=== PATIENT | male | born 1990 | race Hispanic/Latino ===

== ENCOUNTER 2024-07-26 19:22 | Emergency (ER) | payer SELFPAY ==
[2024-07-26 19:57] LABS: Absolute Lymphocytes (CBC) 0.9 K/uL (0.7-4.9); Absolute Monocytes 0.6 K/uL (0.1-1.3); Absolute Neutrophil 6.5 K/uL (1.8-8.0); Basophils % 0.5 % (0-1.3); Eosinophils % 0.5 % (0-4.4); Hematocrit 44.7 % (39.6-49.0); Hemoglobin 15.1 g/dL (13.6-17.9); Lymphocytes % 11.6 % (15.3-44.8); MCHC 33.9 g/dL (32.0-36.0); MCV 94.4 fL (80-100); MPV 7.6 fL (7.6-11.3); Monocytes % 7.5 % (3.3-12.3); Neutrophils % 79.9 % (41.7-73.7); Nucleated Red Blood Cells % 0.1 % (0-0); Platelets 280 thou/uL (152-406); RBC Red Blood Cell Count 4.74 M/uL (4.33-5.43); Red Cell Distribution Width 13.8 % (12.1-15.2)
[2024-07-26 20:02] LABS: PT Prothrombin Time 11.1 SECONDS (9.4-12.5); PTT, Activated Partial Thromb 34.5 SECONDS (24.3-36.9); Protime INR 0.99
[2024-07-26 20:52] LABS: ALT/SGPT 27 U/L (16-61); AST/SGOT 15 U/L (15-37); Albumin 3.4 g/dL (3.4-5.0); Alkaline Phosphatase 88 U/L (45-117); Anion Gap 4.5 mEq/L (5.0-15.0); BUN Blood Urea Nitrogen 5 mg/dL (7-18); Bicarbonate 32 mEq/L (21-32); Bilirubin Total 0.3 mg/dL (0.2-1.0); Globulin 3.3 g/dL (2.3-3.5); Glomerular Filtration Rate 116 ml/min (=/>90); Glucose Level 104 mg/dL (74-106); Potassium 3.5 mEq/L (3.5-5.1); Protein, Total 6.7 g/dL (6.4-8.2); Sodium Level 141 mEq/L (136-145)
[2024-07-26 20:55] LABS: Bilirubin Direct < 0.2 mg/dL (0-0.2); Bilirubin Indirect, Calculated 0.1 mg/dL (0.2-0.8)
[2024-07-26 21:28] LABS: Barbiturates NEGATIVE (NEGATIVE); Benzodiazepines NEGATIVE (NEGATIVE); Cocaine NEGATIVE (NEGATIVE); METHAMPHETAM POSITIVE (NEGATIVE); Methadone NEGATIVE (NEGATIVE); Opiates NEGATIVE (NEGATIVE); Phencyclidine NEGATIVE (NEGATIVE); THC Cannibis NEGATIVE (NEGATIVE)
[2024-07-26 21:30] LABS: Sqamous Epithelial None Seen /HPF (None Seen); Urine Bacteria None Seen /HPF (<20); Urine Bilirubin NEGATIVE (Negative); Urine Blood Negative (Negative); Urine Clarity Turbid (Clear); Urine Color Colorless (Yellow); Urine Crystals Unidentified Few /HPF (None Seen); Urine Culture Reflex Order NOT NEEDED; Urine Glucose NEGATIVE (Negative); Urine Ketones NEGATIVE (Negative); Urine Microscopic Reflex YN ORDER UMIC; Urine Mucus Slight /HPF (None Seen); Urine Nitrite NEGATIVE (Negative); Urine Protein NEGATIVE (Negative); Urine RBC <5 /HPF (None Seen); Urine Urobilinogen Normal (Normal); Urine WBC <5 /HPF (<5)
[2024-07-26] MEDS ORDERED: NA CHLORIDE 0.9% 1,000 ML ONE (21:53)
--- NOTE | 2024-07-27 01:07 | ER ---
Nurse's Notes [facility] Name: Russell Johansen Age: 33 yrs Sex: Male : 1990 Arrival Date: 07/26/2024 Time: 19:22 Bed 16 Private MD: Diagnosis: Suicide attempt Presentation: 07/26 19:22 Chief complaint: EMS states: Pt called girlfriend saying he took a hole bottle of vc1 pills. When we arrived he stated he took 15 Aleve pm. 19:22 Coronavirus screen: Client denies travel out of the [place] in the last 14 days. At this vc1 time, the client does not indicate any symptoms associated with coronavirus-19. Ebola Screen: Patient negative for fever greater than or equal to 101.5 degrees Fahrenheit, and additional compatible Ebola Virus Disease symptoms Patient denies exposure to infectious person. Patient denies travel to an Ebola-affected area in the 21 days before illness onset. No symptoms or risks identified at this time. Initial Sepsis Screen: Does the patient meet any 2 criteria? No. Patient's initial sepsis screen is negative. Does the patient have a suspected source of infection? No. Patient's initial sepsis screen is negative. Risk Assessment: Do you want to hurt yourself or someone else? Patient reports no desire to harm self or others. Onset of symptoms was July 26, 2024 at 18:00. Care prior to arrival: Medication(s) given: zofran 4 mg, IV initiated. 18 GA, in the right antecubital area, 300cc NS. Activity prior to arrival: None. Mechanism of Injury: No Mechanism of Injury. Transition of care: patient was not received from another setting of care. 19:22 Method Of Arrival: EMS: [facility] vc1 19:22 Acuity: [place] 2 vc1 Triage Assessment: 19:22 General: Appears in no apparent distress. comfortable, slender, Behavior is calm, vc1 cooperative, appropriate for age. Pain: Denies pain. EENT: No deficits noted. No signs and/or symptoms were reported regarding the EENT system. Neuro: Level of Consciousness is awake, alert, obeys commands, Oriented to person, place, time, situation, Appropriate for age. Cardiovascular: Capillary refill < 3 seconds Patient's skin is warm and dry. Respiratory: Airway is patent Respiratory effort is even, unlabored, Respiratory pattern is regular, symmetrical. GI: Abdomen is flat, non-distended. : No deficits noted. No signs and/or symptoms were reported regarding the genitourinary system. Derm: Skin is intact, is healthy with good turgor, Skin is dry, Skin is normal, Skin temperature is warm. Musculoskeletal: Circulation, motion, and sensation intact. Range of motion: intact in all extremities. Historical: - Allergies: 19:22 No Known Allergies; vc1 - Home Meds: 19:22 None [Active]; vc1 - PMHx: 19:22 None; vc1 - PSHx: 19:22 None; vc1 - Immunization history:: Client reports receiving the 2nd dose of the Covid vaccine. - Infectious Disease History:: Denies. - Social history:: Smoking status: Patient reports the use of cigarette tobacco products, smokes one-half pack cigarettes per day. Screenin:22 Abuse screen: Denies threats or abuse. Nutritional screening: No deficits noted. vc1 Tuberculosis screening: No symptoms or risk factors identified. 19:37 [facility] ED Fall Risk Assessment (Adult) History of falling in the last 3 months, rg5 including since admission No falls in past 3 months (0 pts) Confusion or Disorientation No (0 pts) Intoxicated or Sedated No (0 pts) Impaired Gait No (0 pts) Mobility Assist Device Used No (0 pt) Altered Elimination No (0 pt) Score/Fall Risk Level 0 - 2 = Low Risk Oriented to surroundings, Maintained a safe environment, Hourly rounding (assess needs \\T\\ fall precautionary measures) done. Assessment: 19:37 General: Appears in no apparent distress. Behavior is calm, cooperative, appropriate rg5 for age. 19:37 Pain: Denies pain. Neuro: Level of Consciousness is awake, alert, obeys commands, rg5 Oriented to person, place, time, Reports suicidal ideation. Cardiovascular: Denies chest pain, Capillary refill < 3 seconds Patient's skin is warm and dry. Respiratory: Airway is patent Trachea midline Respiratory effort is even, unlabored, Respiratory pattern is regular, symmetrical. GI: Abdomen is flat, non-distended. : No signs and/or symptoms were reported regarding the genitourinary system. EENT: No deficits noted. Derm: Skin is intact, Skin is dry, Skin is normal. Musculoskeletal: Circulation, motion, and sensation intact. Range of motion: intact in all extremities. 20:15 Reassessment: Patient and/or family updated on plan of care and expected duration. Pain rg5 level reassessed. Patient is alert, oriented x 3, equal unlabored respirations, skin warm/dry/pink. 20:57 General: Spoke to [employer] control, case # [id number] Pt may experience GI symptoms, N/V/D vc1 and abdominal pain, may also experience anticholinergic effects. Watch for ORS widening, and drowsiness. 6 hour observation from time of ingestion. 21:00 Reassessment: Patient and/or family updated on plan of care and expected duration. Pain rg5 level reassessed. Patient is alert, oriented x 3, equal unlabored respirations, skin warm/dry/pink. 22:00 Reassessment: Patient and/or family updated on plan of care and expected duration. Pain rg5 level reassessed. Patient is alert, oriented x 3, equal unlabored respirations, skin warm/dry/pink. 23:00 Reassessment: Patient and/or family updated on plan of care and expected duration. Pain rg5 level reassessed. Patient is alert, oriented x 3, equal unlabored respirations, skin warm/dry/pink. 07/27 00:00 Reassessment: Patient and/or family updated on plan of care and expected duration. Pain rg5 level reassessed. Patient is alert, oriented x 3, equal unlabored respirations, skin warm/dry/pink. 01:00 Reassessment: Patient and/or family updated on plan of care and expected duration. Pain rg5 level reassessed. Patient is alert, oriented x 3, equal unlabored respirations, skin warm/dry/pink. 02:00 Reassessment: Patient and/or family updated on plan of care and expected duration. Pain rg5 level reassessed. Patient is alert, oriented x 3, equal unlabored respirations, skin warm/dry/pink. 03:00 Reassessment: Patient and/or family updated on plan of care and expected duration. Pain rg5 level reassessed. Patient is alert, oriented x 3, equal unlabored respirations, skin warm/dry/pink. 04:00 Reassessment: Patient and/or family updated on plan of care and expected duration. Pain rg5 level reassessed. Patient is alert, oriented x 3, equal unlabored respirations, skin warm/dry/pink. 05:00 Reassessment: Patient and/or family updated on plan of care and expected duration. Pain rg5 level reassessed. Patient is alert, oriented x 3, equal unlabored respirations, skin warm/dry/pink. 06:01 Reassessment: No changes from previously documented assessment. Patient and/or family rg5 updated on plan of care and expected duration. Pain level reassessed. Overdose: 07/26 19:22 [place] Suicide Severity Screening: "In the past month, have you wished you were vc1 or wished you could go to sleep and not wake up?" Patient responds "yes." Based off client's responses, additional C-SSRS screening questions required. "In the past month, have you actually had any thoughts of killing yourself?" Patient responds "yes." Based off client's responses, additional C-SSRS screening questions required. "In your lifetime, have you ever done anything, started to do anything, or prepared to do anything to end your life?" Patient responds "yes." Pt states he took pills tonight to "go to sleep and not wake up". 19:22 Patient took 15 Aleve PM. Overdose occurred 30 minutes to 1 hour ago. vc1 Vital Signs: 19:22 BP 126 / 81; Pulse 78; Resp 15; Temp 98; Pulse Ox 100% ; Weight 74.84 kg; Height 5 ft. vc1 6 in. ; Pain 0/10; 19:37 BP 126 / 81; Pulse 78; Resp 16; Temp 98(O); Pulse Ox 100% on R/A; Pain 0/10; rg5 19:22 Body Mass Index 26.63 (74.84 kg, 167.64 cm) vc1 19:22 Pain Scale: Adult vc1 19:37 Pain Scale: Adult rg5 [place] Coma Score: 19:37 Eye Response: spontaneous(4). Motor Response: obeys commands(6). Verbal Response: rg5 oriented(5). Total: 15. ED Course: 19:22 Arm band placed on right wrist. vc1 19:22 Patient has correct armband on for positive identification. Bed in low position. Pulse vc1 ox on. NIBP on. Sitter at bedside. Patient is placed in psych hold. 19:37 Patient arrived in ED. vc1 19:37 Gavino Agudelo, RN is Primary Nurse. rg5 19:37 Safety Checks: Personal items have been removed. The door is open or patient has been rg5 placed in a hallway bed/chair. Sitter present at this time. 19:37 No provider procedures requiring assistance completed. Maintain EMS IV. Dressing rg5 intact. Good blood return noted. Site clean \\T\\ dry. Gauge \\T\\ site: 18 right AC. Flushed with 10 mL NS IV is intact. Patient maintains SpO2 saturation greater than 95% on room air. 19:41 Moe Hicks PA is PHCP. cp 19:41 Moe Betancourt MD is Attending Physician. cp 19:48 Triage completed. vc1 20:00 Warm blanket given. oe 20:04 EKG done, by ED staff, reviewed by Moe JENKINS. oe 20:07 Robin Cruz MD is Attending Physician. cp 20:12 Salicylate Sent. oe 20:12 Hepatic Function Sent. oe 20:12 ETOH Level Sent. oe 20:12 Basic Metabolic Panel Sent. oe 20:12 Acetaminophen Sent. oe 23:32 Door closed. Noise minimized. Lights dimmed. oe 23:34 Diet: Patient given snack. Patient given juice. Patient given water. oe 07/27 04:20 Resting quietly. Appears to be sleeping. transfer approval from receiving facility. rg5 05:55 IV discontinued. rg5 06:00 Provided Education on: post er care. rg5 Administered Medications: 07/26 22:01 Drug: NS 0.9% IV 1000 ml IV at 1000 ml once; to be given as a bolus over 60 minutes rg5 Route: IV; Rate: 1000 ml; Site: right antecubital; 23:15 Follow up: IV Status: Completed infusion; IV Intake: 1000ml rg5 07/27 01:42 Drug: Ativan IVP 1 mg IVP once Route: IVP; Site: right antecubital; rg5 02:00 Follow up: Response: No adverse reaction rg5 Medication: 07/26 19:37 VIS not applicable for this client. rg5 Intake: 23:15 IV: 1000ml; Total: 1000ml. rg5 Outcome: 07/27 01:07 ER care complete, transfer ordered by MD. cp 06:09 Patient left the ED. rg5 06:10 Transferred by ground EMS rg5 06:10 Condition: stable 06:10 Instructed on the need for transfer, Signatures: Moe Hicks PA PA cp Espinosa, [place] oe Calcote, Vanessa, RN RN vc1 Gavino Agudelo RN RN rg5 Corrections: (The following items were deleted from the chart) 07/26 20:59 19:22 Chief complaint: EMS states: Pt called girlfriend saying he took a hole bottle of vc1 pills. When we arrived he stated he took 15 Aleve prn. vc1
--- NOTE | 2024-07-27 01:08 | EDPHYS ---
Physician Documentation [facility] Name: Russell Johansen Age: 33 yrs Sex: Male : 1990 Arrival Date: 07/26/2024 Time: 19:22 Bed 16 Private MD: ED Physician Robin Cruz HPI: 07/26 19:45 This 33 yrs old Male presents to ER via EMS with complaints of Overdose, cp Suicidal Ideation. 19:45 The patient presents to the emergency department after a known overdose, that was cp intentional. Context: Method: the patient has a confirmed or suspected ingestion, Aleve, Extent: about 15 tablets of Aleve PM. 19:45 Associated signs and symptoms: Pertinent negatives: auditory hallucinations, decreased cp level of consciousness, diarrhea, palpitations, shortness of breath, visual hallucinations, vomiting. Historical: - Allergies: 19:22 No Known Allergies; vc1 - Home Meds: 19:22 None [Active]; vc1 - PMHx: 19:22 None; vc1 - PSHx: 19:22 None; vc1 - Immunization history:: Client reports receiving the 2nd dose of the Covid vaccine. - Infectious Disease History:: Denies. - Social history:: Smoking status: Patient reports the use of cigarette tobacco products, smokes one-half pack cigarettes per day. ROS: 19:50 Constitutional: Negative for body aches, chills, fever, poor PO intake, cp 19:50 Cardiovascular: Negative for chest pain, edema, palpitations, cp 19:50 Abdomen/GI: Negative for abdominal pain, vomiting, diarrhea, constipation, 19:50 Eyes: Negative for injury, pain, redness, and discharge, cp 19:50 ENT: Negative for drainage from ear(s), ear pain, sore throat, difficulty swallowing, cp difficulty handling secretions, 19:50 Respiratory: Negative for cough, shortness of breath, wheezing, 19:50 Neuro: Negative for altered mental status, 19:50 All other systems are negative, Exam: 19:55 Constitutional: The patient appears in no acute distress, alert, awake, cp non-diaphoretic, non-toxic, well developed, well nourished, 19:55 Head/Face: Normocephalic, atraumatic. cp 19:55 Eyes: Periorbital structures: appear normal, Conjunctiva: normal, no exudate, no injection, Sclera: no appreciated abnormality, Lids and lashes: appear normal, bilaterally, 19:55 ENT: External ear(s): are unremarkable, Nose: is normal, Mouth: Lips: moist, Oral mucosa: pink and intact, moist, Posterior pharynx: Airway: no evidence of obstruction, patent, 19:55 Chest/axilla: Inspection: normal, 19:55 Cardiovascular: Rate: normal, Rhythm: regular, 19:55 Respiratory: the patient does not display signs of respiratory distress, Respirations: normal, no use of accessory muscles, no retractions, labored breathing, is not present, Breath sounds: are clear throughout, no decreased breath sounds, no stridor, no wheezing, 19:55 Abdomen/GI: Exam negative for discomfort, distension, guarding, Inspection: abdomen appears normal, 19:55 Neuro: Orientation: to person, place \T\ time. Mentation: is normal, 19:55 Psych: Behavior/mood is uncooperative, Affect is calm, Judgement / Insight is normal. Delusions/hallucinations are not present. 20:10 ECG was reviewed by the Attending Physician. cp Vital Signs: 19:22 BP 126 / 81; Pulse 78; Resp 15; Temp 98; Pulse Ox 100% ; Weight 74.84 kg; Height 5 ft. vc1 6 in. ; Pain 0/10; 19:37 BP 126 / 81; Pulse 78; Resp 16; Temp 98(O); Pulse Ox 100% on R/A; Pain 0/10; rg5 19:22 Body Mass Index 26.63 (74.84 kg, 167.64 cm) vc1 19:22 Pain Scale: Adult vc1 19:37 Pain Scale: Adult rg5 [place] Coma Score: 19:37 Eye Response: spontaneous(4). Motor Response: obeys commands(6). Verbal Response: rg5 oriented(5). Total: 15. MDM: 19:41 Medical Screening Exam initiated cp 20:00 Differential diagnosis: Ingestion/exposure to toxic ingestion, suicide attempt, cp depression, electrolyte abnormality. 07/27 01:10 Data reviewed: vital signs, nurses notes, lab test result(s), EKG, and as a result, I cp will transfer patient for psych treatment. 17:33 Counseling: I had a detailed discussion with the patient and/or guardian regarding the cp historical points, exam findings, and any diagnostic results supporting the discharge/admit diagnosis. Response to treatment: the patient's symptoms have markedly improved after treatment, and as a result, I will discharge patient. 07/26 19:38 Order name: Acetaminophen; Complete Time: 21:46 sb4 07/26 19:38 Order name: Basic Metabolic Panel; Complete Time: 21:46 sb4 07/27 01:03 Interpretation: Normal except: CL 108; ANION GAP 4.5; BUN 5. cp 07/26 19:38 Order name: CBC with Diff; Complete Time: 21:46 sb4 07/26 21:47 Interpretation: Normal except: TERRIE% 79.9; LYM% 11.6. cp 07/26 19:38 Order name: ETOH Level; Complete Time: 21:46 sb4 07/26 19:38 Order name: Hepatic Function; Complete Time: 21:46 sb4 07/27 01:04 Interpretation: Normal except: IBILI, CALC 0.1; A/G 1.0. 07/26 19:38 Order name: PT-INR; Complete Time: 21:46 sb4 07/26 19:38 Order name: Ptt, Activated; Complete Time: 21:46 sb4 07/26 19:38 Order name: Salicylate; Complete Time: 21:46 sb4 07/26 19:38 Order name: Urinalysis w/ reflexes; Complete Time: 21:46 sb4 07/27 01:05 Interpretation: Reviewed. 07/26 19:38 Order name: Urine Drug Screen; Complete Time: 21:46 sb4 07/27 01:04 Interpretation: Normal except: METHAMPHETAMINE POSITIVE. 07/26 19:38 Order name: EKG; Complete Time: 19:38 sb4 07/26 19:38 Order name: EKG - Nurse/Tech; Complete Time: 20:12 sb4 07/26 19:38 Order name: IV Saline Lock; Complete Time: 20:41 sb4 07/26 19:38 Order name: Labs collected and sent; Complete Time: 20:12 sb4 07/26 19:38 Order name: Suicide Precautions; Complete Time: 20:43 sb4 07/26 19:38 Order name: Suicide Screening ([place]); Complete Time: 20:43 sb4 07/26 21:06 Order name: Seizure Precautions; Complete Time: 21:37 vc1 EC/04 20:10 Rate is 66 beats/min. Rhythm is regular. SC interval is normal. QRS interval is normal. cp QT interval is normal. T waves are Inverted in lead aVR. Interpreted by me. Reviewed by me. Administered Medications: 22:01 Drug: NS 0.9% IV 1000 ml IV at 1000 ml once; to be given as a bolus over 60 minutes rg5 Route: IV; Rate: 1000 ml; Site: right antecubital; 23:15 Follow up: IV Status: Completed infusion; IV Intake: 1000ml rg5 07/27 01:42 Drug: Ativan IVP 1 mg IVP once Route: IVP; Site: right antecubital; rg5 02:00 Follow up: Response: No adverse reaction rg5 Disposition: 20:30 Co-signature as Attending Physician, Robin Cruz MD I agree with the assessment sp4 and plan of care. I reviewed the patient's care provided by Advanced Practice Provider \T\ agree w/ the diagnosis \T\ care plan. I personally saw the pt \T\ performed a substantive portion of the visit, incldng all aspects of the (History/Exam/Medical Decision Making). Disposition Summary: 07/27/24 01:07 Transfer Ordered Notes: Transfer Location: Psych Facility cp Reason: Higher level of care cp Condition: Stable cp Problem: new cp Symptoms: have improved cp Accepting Physician: Doctor(07/27/24 06:09) rg5 Diagnosis - Suicide attempt cp Discharge Instructions: - Discharge Summary Sheet rg5 Forms: - Medication Reconciliation Form cp - SBAR form cp - School release form rg5 - Work release form rg5 Signatures: Dispatcher [employer] EDMS Moe Hicks PA PA cp Calcote, Vanessa RN RN vc1 Yisel Gonsalves PA-C PARobin Barrios MD MD sp4 Gavino Agudelo RN RN rg5 Corrections: (The following items were deleted from the chart) 07/26 19:38 19:38 ACETAMINOPHEN+C.LAB.BRZ ordered. EDMS EDMS 19:38 19:38 BASIC METABOLIC PANEL+C.LAB.BRZ ordered. EDMS EDMS 19:38 19:38 CBC+H.LAB.BRZ ordered. EDMS EDMS 19:38 19:38 ETHANOL+C.LAB.BRZ ordered. EDMS EDMS :38 19:38 HEPATIC FUNCTION+C.LAB.BRZ ordered. EDMS EDMS 38 19:38 PROTIME (+INR)+COAG.LAB.BRZ ordered. EDMS EDMS :38 19:38 PTT, ACTIVATED+COAG.LAB.BRZ ordered. EDMS EDMS 19:38 SALICYLATE+C.LAB.BRZ ordered. EDMS EDMS : 19:38 Urinalysis+U.LAB.BRZ ordered. EDMS EDMS : 19:38 URINE DRUG SCREEN+UC.LAB.BRZ ordered. EDMS EDMS 07/27 06:09 01:07 Doctor ekta rg5
[2024-07-27] MEDS ORDERED: LORazepam 2 MG/ML VIAL ONE (01:39)
[2024-07-27 06:15] VITALS: BP 126/81; TEMP 98; O2SAT 100
--- NOTE | 2024-07-27 12:17 | EKG ---
Test Date: 2024-07-26 Test Time: 20:02:04 Process Architect: RE MEASUREMENT RESULTS: Intervals: Rate: 66 MA: 132 QRSD: 98 QT: 404 QTc: 423 [place]: P: 36 MA: 132 QRS: 56 T: 57 INTERPRETIVE STATEMENTS: Normal sinus rhythm Normal ECG Compared to ECG 12/15/2001 08:55:00 No significant changes Electronically Signed On 07-27-24 12:16:02 [employer] by Stephen Monte
== END 2024-07-27 06:09 ==
LOC: ER 19:22
DX: T39.312A Poisoning by propionic acid derivatives, intentional self-harm, initial encounter (principal); Z72.0 Tobacco use
CPT/HCPCS: 36415; 80048; 80076; 80143; 80179; 80307; 81001; 82077; 85025; 85610; 85730; 93005; J7030

== ENCOUNTER 2024-08-24 14:46 | Emergency (ER) | payer OTHER ==
[2024-08-24] MEDS ORDERED: DIPHENHYDRAMINE 50 MG/ML VIAL ONE (15:27)
[2024-08-24] MEDS ORDERED: HALOPERIDOL LACT 5 MG/ML INJ ONE (15:27)
[2024-08-24 15:28] LABS: Absolute Eosinophils 0.1 K/uL (0-0.5); Absolute Lymphocytes (CBC) 1.1 K/uL (0.7-4.9); Absolute Monocytes 0.7 K/uL (0.1-1.3); Absolute Neutrophil 6.5 K/uL (1.8-8.0); Basophils % 0.4 % (0-1.3); Eosinophils % 0.7 % (0-4.4); Hematocrit 45.5 % (39.6-49.0); Hemoglobin 15.4 g/dL (13.6-17.9); Lymphocytes % 13.3 % (15.3-44.8); MCV 94.2 fL (80-100); MPV 7.4 fL (7.6-11.3); Monocytes % 8.6 % (3.3-12.3); Nucleated Red Blood Cells % 0.1 % (0-0); Platelets 285 thou/uL (152-406); RBC Red Blood Cell Count 4.83 M/uL (4.33-5.43); Red Cell Distribution Width 13.9 % (12.1-15.2)
[2024-08-24 15:35] LABS: PT Prothrombin Time 11.1 SECONDS (9.4-12.5); PTT, Activated Partial Thromb 34.7 SECONDS (24.3-36.9); Protime INR 0.99
[2024-08-24 15:48] LABS: ALT/SGPT 27 U/L (16-61); AST/SGOT 14 U/L (15-37); Albumin 3.8 g/dL (3.4-5.0); Albumin/Globulin Ratio 1.1 (1.1-1.8); Alkaline Phosphatase 75 U/L (45-117); Anion Gap 7.7 mEq/L (5.0-15.0); BUN Blood Urea Nitrogen 7 mg/dL (7-18); Bicarbonate 28 mEq/L (21-32); Bilirubin Total 0.4 mg/dL (0.2-1.0); Globulin 3.6 g/dL (2.3-3.5); Glomerular Filtration Rate 112 ml/min (=/>90); Glucose Level 128 mg/dL (74-106); Potassium 3.7 mEq/L (3.5-5.1); Protein, Total 7.4 g/dL (6.4-8.2); Sodium Level 137 mEq/L (136-145)
[2024-08-24 15:49] LABS: Bilirubin Direct < 0.2 mg/dL (0-0.2); Bilirubin Indirect, Calculated 0.2 mg/dL (0.2-0.8)
[2024-08-24 17:45] LABS: Barbiturates NEGATIVE (NEGATIVE); Benzodiazepines POSITIVE (NEGATIVE); Cocaine NEGATIVE (NEGATIVE); METHAMPHETAM POSITIVE (NEGATIVE); Methadone NEGATIVE (NEGATIVE); Opiates NEGATIVE (NEGATIVE); Phencyclidine NEGATIVE (NEGATIVE); THC Cannibis NEGATIVE (NEGATIVE)
--- NOTE | 2024-08-24 18:50 | EDPHYS ---
Physician Documentation [facility] Name: Russell Johansen Age: 34 yrs Sex: Male : 1990 Arrival Date: 08/24/2024 Time: 14:46 Bed 18 Private MD: ED Physician Blayne Soto HPI: 08/24 17:07 This 34 yrs old Male presents to ER via EMS with complaints of Doesn't Feel ec2 Right. 17:07 Patient arrives today for evaluation of "not feeling well ". Reports that he is hearing ec2 things however would not elaborate. Patient reports some anxiety, endorses methamphetamine use. Patient denies any suicidality to me however reportedly told this to nursing.. Historical: - Allergies: 15:16 No Known Allergies; aa5 - PMHx: 15:16 Anxiety; aa5 - Immunization history:: Adult Immunizations unknown. - Infectious Disease History:: Denies. - Social history:: Smoking status: Patient reports the use of cigarette tobacco products, Patient uses street drugs, Methamphetamine (Meth) Xanax. ROS: 17:07 Constitutional: as per hpi ec2 Exam: 17:07 Constitutional: GEN: NAD Head: atraumatic Eyes: EOMI Ears: External ears are ec2 normal. CV: Tachycardia LUNGS: no respiratory distress ABD: non-distended SKIN: no evidence of rashes MSK: no evidence of trauma. Psych: Cooperative individual who is not responding to external stimuli who otherwise denies suicidality to me Vital Signs: 14:46 BP 139 / 91; Pulse 103; Resp 16 S; Temp 97.8(TE); Pulse Ox 98% on R/A; Weight 72.57 kg aa5 (R); Height 5 ft. 6 in. (R); 18:47 BP 133 / 88; Pulse 77; Resp 17; Pulse Ox 98% on R/A; rs5 19:26 BP 106 / 54; Pulse 77; Resp 15; Pulse Ox 98% on R/A; Pain 0/10; ty 22:21 BP 130 / 79; Pulse 80; Resp 17; Temp 97.5; Pulse Ox 100% ; Pain 0/10; bm8 14:46 Body Mass Index 25.82 (72.57 kg, 167.64 cm) aa5 19:26 Pain Scale: Adult ty 22:21 Pain Scale: Adult bm8 [place] Coma Score: 19:26 Eye Response: spontaneous(4). Motor Response: obeys commands(6). Verbal Response: bm8 oriented(5). Total: 15. 22:21 Eye Response: spontaneous(4). Motor Response: obeys commands(6). Verbal Response: bm8 oriented(5). Total: 15. MDM: 15:05 Medical Screening Exam initiated ec2 17:07 Data reviewed: vital signs, nurses notes. ec2 17:08 ED course: Patient arrives today for feeling unwell. Examination is unrevealing. Will ec2 obtain a toxic workup.. 17:20 ED course: EKG independently reviewed and interpreted by me, shows normal sinus rhythm, ec2 rate of 89, no acute ST segment elevations, intervals are nonactionable.. 18:49 ED course: Patient medically clear, endorses suicidality and homicidality states that ec2 he wants to go hang himself. Will have [facility] evaluate him.. 12/03 15:05 Order name: Acetaminophen; Complete Time: 17:07 ec2 08/24 15:05 Order name: Basic Metabolic Panel; Complete Time: 17:07 ec2 08/24 15:05 Order name: CBC with Diff; Complete Time: 17:07 ec2 08/24 15:05 Order name: ETOH Level; Complete Time: 17:07 ec2 08/24 15:05 Order name: Hepatic Function; Complete Time: 17:07 ec2 08/24 15:05 Order name: PT-INR; Complete Time: 17:07 ec2 08/24 15:05 Order name: Ptt, Activated; Complete Time: 17:07 ec2 08/24 15:05 Order name: Salicylate; Complete Time: 17:07 ec2 08/24 15:05 Order name: Urine Drug Screen; Complete Time: 17:53 ec2 08/24 15:05 Order name: EKG; Complete Time: 15:06 ec2 08/24 15:05 Order name: EKG - Nurse/Tech; Complete Time: 18:07 ec2 08/24 15:05 Order name: IV Saline Lock; Complete Time: 15:22 ec2 08/24 15:05 Order name: Labs collected and sent; Complete Time: 15:22 ec2 08/24 15:05 Order name: Suicide Screening ([place]); Complete Time: 15:22 ec2 Administered Medications: 16:14 Drug: Haloperidol IVP 5 mg IVP once Route: IVP; Site: right antecubital; jb4 16:33 Follow up: Response: No adverse reaction; Anxiety decreased rs5 16:14 Drug: diphenhydrAMINE IVP 25 mg IVP once Route: IVP; Site: right antecubital; jb4 16:33 Follow up: Response: No adverse reaction rs5 Disposition Summary: 08/24/24 18:50 Transfer Ordered Notes: Transfer Location: Psych Facility ec2 Reason: Higher level of care ec2 Condition: Stable ec2 Problem: new ec2 Symptoms: have improved ec2 Accepting Physician: transferring doc(08/24/24 22:25) bm8 Diagnosis - Suicidal ideations ec2 Forms: - Medication Reconciliation Form ec2 - SBAR form ec2 Signatures: Dispatcher [employer] Shaneka Kay RN RN aa5 Zhen Mckeon RN RN jb4 Blayne Soto MD MD ec2 Ramo Cummings RN RN bm8 Scott Hogan RN rs5 Corrections: (The following items were deleted from the chart) 17:09 17:07 Constitutional: GEN: NAD Head: atraumatic Eyes: EOMI Ears: External ears are ec2 normal. CV: Tachycardia LUNGS: no respiratory distress ABD: non-distended SKIN: no evidence of rashes MSK: no evidence of trauma ec2 22:25 18:50 transferring doc ec2 bm8
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
[2024-08-25 05:07] VITALS: BP 130/79; TEMP 97.5; O2SAT 100
== END 2024-08-24 22:25 ==
LOC: ER 14:46
DX: R45.851 Suicidal ideations (principal); F41.9 Anxiety disorder, unspecified; Z72.0 Tobacco use
CPT/HCPCS: 85025; 80048; 36415; 85610; 80076; 85730; 80307; 96375; 96374; 99285; 80143; 80179; 82077; J1630; J1200

== ENCOUNTER 2024-09-16 10:37 | Emergency (ER) | payer OTHER ==
[2024-09-16 11:37] LABS: Absolute Monocytes 0.5 K/uL (0.1-1.3); Basophils % 0.4 % (0-1.3); Eosinophils % 0.5 % (0-4.4); Hematocrit 46.8 % (39.6-49.0); Hemoglobin 15.8 g/dL (13.6-17.9); Lymphocytes % 14.9 % (15.3-44.8); MCH 32.1 pg (27.0-35.0); MCHC 33.8 g/dL (32.0-36.0); MCV 94.9 fL (80-100); MPV 7.4 fL (7.6-11.3); Monocytes % 7.8 % (3.3-12.3); Neutrophils % 76.4 % (41.7-73.7); Platelets 291 thou/uL (152-406); RBC Red Blood Cell Count 4.93 M/uL (4.33-5.43); Red Cell Distribution Width 13.6 % (12.1-15.2)
[2024-09-16 11:59] LABS: ALT/SGPT 24 U/L (16-61); AST/SGOT 13 U/L (15-37); Albumin 3.9 g/dL (3.4-5.0); Albumin/Globulin Ratio 1.1 (1.1-1.8); Alkaline Phosphatase 71 U/L (45-117); BUN Blood Urea Nitrogen 10 mg/dL (7-18); Bicarbonate 31 mEq/L (21-32); Bilirubin Total 0.4 mg/dL (0.2-1.0); Globulin 3.6 g/dL (2.3-3.5); Glomerular Filtration Rate 95 ml/min (=/>90); Glucose Level 100 mg/dL (74-106); Protein, Total 7.5 g/dL (6.4-8.2); Sodium Level 138 mEq/L (136-145)
[2024-09-16] MEDS ORDERED: RISPERIDONE 1 MG TABLET PO ONE (12:00)
[2024-09-16] MEDS ORDERED: TRAZODONE 50 MG TABLET PO ONE (12:00)
[2024-09-16] MEDS ORDERED: BUSPIRONE HCL 5 MG TABLET PO ONE (12:00)
[2024-09-16] MEDS ORDERED: LORAZEPAM 1 MG TABLET ONE ×2 (12:36→20:01)
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
--- NOTE | 2024-09-16 17:19 | EDPHYS ---
Physician Documentation [facility] Name: Russell Johansen Age: 34 yrs Sex: Male : 1990 Arrival Date: 09/16/2024 Time: 10:37 Bed 16 Private MD: ED Physician Ernestine Lea HPI: 09/16 11:08 This 34 yrs old Male presents to ER via Ambulatory with complaints of Suicidal sd2 Ideation, ETOH Abuse. 11:08 34 yo M presents with CC of SI and ETOH and meth abuse. Reports drinking bottle of sd2 [place] and using meth yesterday. Reports SI prior to that and continuously with associated hallucinations. Has been off his medications for a few days as well which he reports were previously helping him. Reports a plan to harm himself but refuses to elaborate. Denies HI.. Historical: - Allergies: 10:46 No Known Allergies; iw - Home Meds: 12:32 Risperdal 4 mg Oral tablet every day at bedtime [Active]; buspirone 10 mg Oral tablet 1 ph tab daily [Active]; trazodone 50 mg Oral tablet 1 tab every day at bedtime [Active]; - PMHx: 10:46 Anxiety; iw - PSHx: 10:46 None; iw - Immunization history:: Adult Immunizations not up to date. - Infectious Disease History:: Denies. - Social history:: Smoking status: Patient reports the use of cigarette tobacco products, smokes one pack cigarettes per day. Patient uses street drugs, Methamphetamine (Meth). ROS: 11:08 Constitutional: Negative for fever, chills, and weight loss, Eyes: Negative for injury, sd2 pain, redness, and discharge, Cardiovascular: Negative for chest pain, palpitations, and edema, Respiratory: Negative for shortness of breath, cough, wheezing. Abdomen/GI: Negative for abdominal pain, nausea, vomiting, diarrhea. MS/Extremity: Negative for injury and deformity, Skin: Negative for injury, rash, and discoloration, Neuro: Negative for headache, numbness and tingling. Psych: Positive for depression, anxiety, suicide ideation, and hallucinations, Negative for HI Exam: 11:08 Constitutional: This is a well developed, well nourished patient who is awake, alert, sd2 and in no acute distress. Head/Face: Normocephalic, atraumatic. Eyes: EOMI, normal conjunctiva bilaterally Chest/axilla: Normal chest wall appearance and motion. Nontender with no deformity. Cardiovascular: Regular rate and rhythm with a normal S1 and S2. No gallops, murmurs, or rubs. 2+ distal pulses. Respiratory: Lungs have equal breath sounds bilaterally, clear to auscultation and percussion. No rales, rhonchi or wheezes noted. No increased work of breathing, no retractions or nasal flaring. Abdomen/GI: Soft, non-tender, with normal bowel sounds. No guarding or rebound. No evidence of tenderness throughout. Skin: Warm, dry with normal turgor. Normal color with no rashes, no lesions, and no evidence of cellulitis. MS/ Extremity: Pulses equal, no cyanosis. Neurovascular intact. Full, normal range of motion. Psych: Awake, alert, with orientation to person, place and time. Behavior, mood, and affect are within normal limits. 15:01 ECG was reviewed by the Attending Physician. NSR, rate 87, no STEMI criteria sd2 Vital Signs: 10:44 BP 143 / 101; Pulse 102; Resp 18; Temp 97.2; Pulse Ox 99% on R/A; Weight 76.2 kg; iw Height 5 ft. 6 in. ; 14:41 BP 132 / 89; Pulse 94; Resp 18; Temp 97.4; Pulse Ox 98% on R/A; ph 19:00 BP 119 / 71 LA (auto/reg); Pulse 86; Resp 17; Temp 98.2; Pulse Ox 100% on R/A; vk 09/17 05:58 BP 123 / 73; Pulse 91; Resp 18; Temp 98; Pulse Ox 99% on R/A; kj2 09/16 10:44 Body Mass Index 27.12 (76.20 kg, 167.64 cm) iw MDM: 09/16 10:49 Medical Screening Exam initiated sd2 11:08 Differential diagnosis: depression, SI, HI, psychosis, drug abuse among others. Data sd2 reviewed: vital signs, nurses notes, lab test result(s). I considered the following discharge prescriptions or medication management in the emergency department Medications were administered in the Emergency Department. See MAR. Care significantly affected by the following chronic conditions: Anxiety and depression. 17:17 Counseling: I had a detailed discussion with the patient and/or guardian regarding the sd2 historical points, exam findings, and any diagnostic results supporting the discharge/admit diagnosis, lab results, the need to transfer to another facility, mental health evaluation. ED course: Pt medically cleared and pending evaluation by MAT team.. Now reports that he is no longer suicidal and just felt anxious after taking the drugs. Reports he has a follow up with [facility] tomorrow. . 09/16 11:00 Order name: CBC with Diff; Complete Time: 05:31 sd2 09/16 11:00 Order name: CMP; Complete Time: 05:31 sd2 09/16 11:00 Order name: Ethanol; Complete Time: 05:31 sd2 09/16 11:00 Order name: Salicylate; Complete Time: 05:31 sd2 09/16 11:00 Order name: Acetaminophen; Complete Time: 05:31 sd2 09/16 11:00 Order name: UDS; Complete Time: 05:31 sd2 09/16 11:00 Order name: EKG - Nurse/Tech; Complete Time: 14:57 sd2 Administered Medications: 11:52 Drug: busPIRone 10 mg PO once Route: PO; ph 14:57 Follow up: Response: No adverse reaction ph 11:52 Drug: RisperDAL PO 4 mg PO once Route: PO; ph 14:57 Follow up: Response: No adverse reaction ph 12:56 Drug: LORazepam PO 2 mg PO once Route: PO; ph 14:57 Follow up: Response: No adverse reaction; Anxiety decreased ph 20:04 Drug: LORazepam PO 2 mg PO once Route: PO; kj2 21:09 Follow up: Response: No adverse reaction kj2 20:05 Drug: traZODONE PO 50 mg PO once Route: PO; kj2 21:09 Follow up: Response: No adverse reaction kj2 09/17 05:40 Drug: LORazepam PO 2 mg PO once Route: PO; kj2 05:57 Follow up: Response: Medication administered at discharge. kj2 05:57 Follow up: Response: No adverse reaction; Anxiety decreased kj2 05:57 Drug: RisperDAL PO 4 mg PO once Route: PO; kj2 05:57 Follow up: Response: Medication administered at discharge. kj2 Disposition Summary: 09/16/24 17:18 Transfer Ordered Notes: Transfer Location: Psych Facility sd2 Reason: Higher level of care sd2 Condition: Stable sd2 Problem: new sd2 Symptoms: are unchanged sd2 Accepting Physician: MERY(09/17/24 06:00) kj2 Diagnosis - Suicidal ideations sd2 - Adverse effect of amphetamines, initial encounter sd2 Discharge Instructions: - Discharge Summary Sheet ty Forms: - Medication Reconciliation Form sd2 - SBAR form ty Signatures: Dispatcher [employer] EDRafaela Bailon, RN RN Lianet Lyons ph D, RN RNunlop, Stephanie, MD MD sd2 Robin Cruz MD MD sp4 Tanya Caldwell RN RN kj2 Corrections: (The following items were deleted from the chart) 09/16 11:00 11:00 CBC+H.LAB.BRZ ordered. EDMS EDMS 11:00 11:00 COMPREHENSIVE METABOLIC PANEL+C.LAB.BRZ ordered. EDMS EDMS 11:00 11:00 ETHANOL+C.LAB.BRZ ordered. EDMS EDMS 11:00 11:00 SALICYLATE+C.LAB.BRZ ordered. EDMS EDMS 11:00 11:00 ACETAMINOPHEN+C.LAB.BRZ ordered. EDMS EDMS 11:00 11:00 URINE DRUG SCREEN+UC.LAB.BRZ ordered. EDMS EDMS 09/17 06:00 09/16 17:18 TBD sd2 kj2
[2024-09-16 20:41] LABS: Barbiturates NEGATIVE (NEGATIVE); Benzodiazepines NEGATIVE (NEGATIVE); Cocaine NEGATIVE (NEGATIVE); METHAMPHETAM POSITIVE (NEGATIVE); Methadone NEGATIVE (NEGATIVE); Opiates NEGATIVE (NEGATIVE); Phencyclidine NEGATIVE (NEGATIVE); THC Cannibis NEGATIVE (NEGATIVE)
[2024-09-17] MEDS ORDERED: LORAZEPAM 1 MG TABLET ONE (05:35)
[2024-09-17] MEDS ORDERED: RISPERIDONE 1 MG TABLET ONE (05:39)
[2024-09-17 06:11] VITALS: BP 123/73; TEMP 98; O2SAT 99
--- NOTE | 2024-09-20 11:21 | EKG ---
Test Date: 2024-09-16 Test Time: 14:36:34 Cleaner And Dyer: ENOCH MEASUREMENT RESULTS: Intervals: Rate: 87 AZ: 130 QRSD: 92 QT: 350 QTc: 421 [place]: P: 40 AZ: 130 QRS: 66 T: 23 INTERPRETIVE STATEMENTS: Normal sinus rhythm Normal ECG Compared to ECG 08/24/2024 17:16:38 No significant changes Electronically Signed On 09-20-24 11:14:56 DRAFTING ENGINEER by Stephen Monte
== END 2024-09-17 06:00 ==
LOC: ER 10:37
DX: R45.851 Suicidal ideations (principal); T43.625A Adverse effect of amphetamines, initial encounter; F41.9 Anxiety disorder, unspecified; F17.210 Nicotine dependence, cigarettes, uncomplicated
CPT/HCPCS: 36415; 80053; 80143; 80179; 80307; 82077; 85025; 93005; 99285

== ENCOUNTER 2025-05-16 04:04 | Inpatient (IN) | payer OTHER, SELFPAY ==
--- OUTSIDE RECORDS SUMMARY | 2025-05-16 04:06 | XMS REPORT | Continuity of Care Document ---
Author Name Unknown Address [address] [facility] [address] [id number] [facility] Address [address] [facility] [place] [address] Care Team Providers Care Wet Washer Machine Name Role Phone MARQUES NICOLE Attending Clinician Unavailable NBA ANDERSON Attending Clinician Unavailable SHU ANAND Attending Clinician Unavailable Payers Payer Name Policy Type Policy Number Effective Date Expirati on Date Source [facility] ERIC JACKMAN [employer]AY [employer] 9 [id number] 2024 00:00:00 Encounters Start Date/Time End Date/Time Encounter Type Admission Type Attending Clinicians Care Facility Care Department Encounter ID Source 2024-08-06 10:00:00 2024-08-06 10:00:00 Outpatient MARQUES NICOLE [id number] Marisol Schaffer 2024-07-20 10:15:00 2024-07-20 10:15:00 Outpatient NBA ANDERSON [id number] Marisol Schaffer 2024-07-19 14:00:00 2024-07-19 14:00:00 Outpatient SHU ANAND [id number] Marisol Schaffer
[2025-05-16] MEDS ORDERED: THIAMINE 200 MG/2 ML INJ ONE (04:28)
[2025-05-16] MEDS ORDERED: MULTIVITAMINS 10 ML VIAL (INJ) IV ONE (04:28)
[2025-05-16] MEDS ORDERED: FOLIC ACID 5 MG/ML VIAL ONE (04:29)
[2025-05-16] MEDS ORDERED: NA CHLORIDE 0.9% 2,000 ML ONE (04:30)
[2025-05-16] MEDS ORDERED: ACTIVATED CHARCOAL 50 GM/240 ML ONE (04:31)
[2025-05-16] MEDS ORDERED: ONDANSETRON 4 MG/2 ML VIAL ONE (04:37)
[2025-05-16 04:41] LABS: Absolute Lymphocytes (CBC) 1.3 K/uL (0.7-4.9); Hematocrit 41.5 % (39.6-49.0); Hemoglobin 14.4 g/dL (13.6-17.9); MCH 32.6 pg (27.0-35.0); MCHC 34.7 g/dL (32.0-36.0); MCV 94.2 fL (80-100); MPV 7.6 fL (7.6-11.3); Nucleated RBC Absolute Count 0.0 (0-0); Nucleated Red Blood Cells % 0.1 % (0-0); RBC Red Blood Cell Count 4.41 M/uL (4.33-5.43); White Blood Count 4.70 thou/uL (4.3-10.9)
[2025-05-16 04:51] LABS: PT Prothrombin Time 11.0 SECONDS (10-13.0); PTT, Activated Partial Thromb 29.7 SECONDS (27.2-37.4); Protime INR 0.97
[2025-05-16] MEDS ORDERED: METOCLOPRAMIDE 10 MG/2mL INJ ONE (05:04)
[2025-05-16] MEDS ORDERED: NA CHLORIDE 0.9% 50 ML ONE (05:04)
[2025-05-16 05:05] LABS: ALT/SGPT 33 U/L (16-61); AST/SGOT 23 U/L (15-37); Albumin 3.3 g/dL (3.4-5.0); Albumin/Globulin Ratio 1.1 (1.1-1.8); Alkaline Phosphatase 82 U/L (45-117); Anion Gap 10.4 mEq/L (5.0-15.0); BUN Blood Urea Nitrogen 8 mg/dL (7-18); Globulin 3.0 g/dL (2.3-3.5); Glucose Level 139 mg/dL (74-106); Potassium 3.4 mEq/L (3.5-5.1)
[2025-05-16 05:09] LABS: Bilirubin Indirect, Calculated 0.2 mg/dL (0.2-0.8)
--- NOTE | 2025-05-16 05:22 | ER ---
Nurse's Notes [facility] Name: Russell Johansen Age: 34 yrs Sex: Male : 1990 Arrival Date: 05/16/2025 Time: 04:04 Bed 3 Private MD: Diagnosis: Poisoning by 4-Aminophenol derivatives, intentional self-harm, initial encounter;Suicide attempt;Suicide attempt, initial encounter;Alcohol abuse with intoxication Presentation: 05/16 04:04 Chief complaint: EMS states: Pt drank 2 4Lokos and took about 3/4 of a 200 count bottle vc1 of tylenol. 04:04 Coronavirus screen: Client denies travel out of the [place] in the last 14 days. At this vc1 time, the client does not indicate any symptoms associated with coronavirus-19. Ebola Screen: Patient negative for fever greater than or equal to 101.5 degrees Fahrenheit, and additional compatible Ebola Virus Disease symptoms Patient denies exposure to infectious person. Patient denies travel to an Ebola-affected area in the 21 days before illness onset. No symptoms or risks identified at this time. Initial Sepsis Screen: Does the patient meet any 2 criteria? HR > 90 bpm. No. Patient's initial sepsis screen is negative. Does the patient have a suspected source of infection? No. Patient's initial sepsis screen is negative. Risk Assessment: Do you want to hurt yourself or someone else? Patient reports no desire to harm self or others. Other: Pt took a large volume of Tylenol and made the statement that he has been drinking a lot lately because he is going back to custodial for 10 years. Pt states, "I lost all hope". Onset of symptoms was May 16, 2025 at 03:00. Care prior to arrival: None. Activity prior to arrival: None. Mechanism of Injury: No Mechanism of Injury. Transition of care: patient was not received from another setting of care. 04:04 Method Of Arrival: EMS: [facility] vc1 04:04 Acuity: [facility] 2 vc1 Historical: - Allergies: 04:04 No Known Allergies; vc1 - PMHx: 04:04 Schizophrenia; vc1 - PSHx: 04:04 None; vc1 - Immunization history:: Adult Immunizations up to date. - Social history:: Smoking status: Patient reports the use of cigarette tobacco products. - Infectious Disease History:: Denies. - Family history:: not pertinent. Screenin:04 [facility] ED Fall Risk Assessment (Adult) History of falling in the last 3 months, vc1 including since admission No falls in past 3 months (0 pts) Confusion or Disorientation No (0 pts) Intoxicated or Sedated Yes (3 pts) Impaired Gait No (0 pts) Mobility Assist Device Used No (0 pt) Altered Elimination No (0 pt) Score/Fall Risk Level 3 or more points = High Risk Oriented to surroundings, Maintained a safe environment, Educated pt \\T\\ family on fall prevention, incl call for assistance when getting out of bed, Provided non-skid footwear, Hourly rounding (assess needs \\T\\ fall precautionary measures) done, Offered frequent toileting (1:1 observation), Utilized family, sitter, or virtual supervisor tank house as indicated. Abuse screen: Denies threats or abuse. Nutritional screening: No deficits noted. Tuberculosis screening: No symptoms or risk factors identified. Assessment: 04:20 Reassessment: Spoke with poison control, advised to give PO activated charcoal, kb4 aspirin, Banana bag, repeat blood tylenol level \\T\\ 4hr (if >150 tx with acetylcysteine), give antiemetics if needed, drawl labs for CBC, CMP, include lithium level and ETOH. . 06:00 Reassessment: No changes from previously documented assessment. Patient and/or family kb4 updated on plan of care and expected duration. Pain level reassessed. Patient is alert, oriented x 3, equal unlabored respirations, skin warm/dry/pink. no n/v at this time Patient denies pain at this time. 07:15 Reassessment: Pt here for suicide attempt via overdose, no sitter available. Charge hb nurse Sujit song. Overdose: 04:19 [place] Suicide Severity Screening: "In the past month, have you wished you were al5 or wished you could go to sleep and not wake up?" Patient responds "no." "In the past month, have you actually had any thoughts of killing yourself?" Patient responds "no." "In your lifetime, have you ever done anything, started to do anything, or prepared to do anything to end your life?" Patient responds "yes." Patient reports suicidal intent occurred greater than 3 months prior. Patient took around 100 500 mg tylenol extra strength about an hour ago. Overdose occurred 30 minutes to 1 hour ago. Vital Signs: 04:04 BP 133 / 96; Pulse 104; Resp 16; Temp 98.4; Pulse Ox 98% ; Weight 90 kg; Height 5 ft. 6 vc1 in. ; 04:30 BP 124 / 86; Pulse 98; Resp 18; Pulse Ox 100% on R/A; kb4 05:00 BP 123 / 95; Pulse 93; Resp 18; Pulse Ox 100% on R/A; kb4 05:30 BP 104 / 76; Pulse 98; Resp 18; Pulse Ox 95% on R/A; kb4 06:00 BP 95 / 77; Pulse 68; Resp 18; Pulse Ox 96% on R/A; kb4 06:30 BP 116 / 66; Pulse 100; Resp 18; Pulse Ox 100% on R/A; kb4 07:00 BP 116 / 91; Pulse 78; Resp 18; Pulse Ox 99% on R/A; kb4 08:00 BP 117 / 76; Pulse 59; Resp 15; Pulse Ox 99% on R/A; hb 04:04 Body Mass Index 32.02 (90.00 kg, 167.64 cm) vc1 ED Course: 04:04 Patient has correct armband on for positive identification. Placed in gown. Bed in low vc1 position. Side rails up X2. Provided Education on: Plan of care. powder worker tnt on. Pulse ox on. NIBP on. Patient is placed in psych hold. 04:08 Patient arrived in ED. rv1 04:09 Moe Betancourt MD is Attending Physician. alonso 04:17 Liana Owens, CRICKET is Primary Nurse. al5 05:19 Magan West MD is Hospitalizing Provider. alonso 06:05 Triage completed. vc1 Administered Medications: 04:36 CANCELLED (Other Intervention Used): ondansetron 4 mg IVP once; over 2 minutes vc1 05:10 Drug: metoCLOPramide IVP 10 mg IVP once; over 1 to 2 minutes Route: IVP; Site: right vc1 antecubital; 07:07 Follow up: Response: No adverse reaction kb4 05:35 Drug: NS 0.9% IV 1000 ml IV at 1 bolus Per protocol; to be given as a bolus over 60 kb4 minutes Route: IV; Rate: 1 bolus; Site: right antecubital; 05:35 Drug: Banana Bag - (Multivitamin IV 1 amp, NS 0.9% IV 1000 ml, Thiamine IV 100 mg, kb4 foLIC Acid IVPB 1 mg) IV at calculated rate once Route: IV; Rate: calculated rate; Site: right antecubital; 05:35 Drug: Ondansetron IVP 8 mg IVP once; over 2 minutes Route: IVP; Site: right antecubital;kb4 05:36 Follow up: Response: No adverse reaction kb4 05:35 Drug: Actidose PO Suspension (50 g/240 mL) 1 g/kg PO See Administration Instructions al5 Route: PO; 07:07 Follow up: Response: No adverse reaction kb4 05:55 Drug: Acetadote IV 150 mg/kg IV at per protocol once; not to exceed 16.5 grams al5 administer over 1 hour Route: IV; Rate: per protocol; Site: right antecubital; 07:08 Follow up: Response: No adverse reaction 4 07:18 Drug: Acetadote IV 50 mg/kg IV at calculated rate once; not to exceed 5.5 grams cm10 administer over 4 hours Route: IV; Rate: calculated rate; Site: right antecubital; Outcome: 05:22 Decision to Hospitalize by Provider. [facility] 09:24 Admitted to ICU accompanied by nurse, room ICU 5, on monitor, with chart, Report called hb to Lakshmi HARLEY 09:24 Condition: stable 09:24 Instructed on the need for admit, Demonstrated understanding of instructions, 09:24 Patient left the ED. hb Signatures: Moe Betancourt MD MD cha Baxter, Heather, RN RN Isaura Neil RN RN vc1 Julia Bain rv1 Aileen Darby RN RN cm10 Liana Owens RN RN al5 Katherine Renteria RN RN kb4 Corrections: (The following items were deleted from the chart) 05:16 05:16 PMHx: Anxiety; alonso alonso
--- NOTE | 2025-05-16 05:22 | EDPHYS ---
Physician Documentation [facility] Name: Russell Johansen Age: 34 yrs Sex: Male : 1990 Arrival Date: 05/16/2025 Time: 04:04 Bed 3 Private MD: ED Physician Moe Betancourt HPI: 05/16 05:09 This 34 yrs old Male presents to ER via Unassigned with complaints of Overdose.alonso 05:09 The patient presents to the emergency department after a known overdose, that was alonso intentional. Context: Method: the patient has a confirmed or suspected ingestion, of acetaminophen. Associated signs and symptoms: The patient has no apparent associated signs or symptoms. Severity of symptoms: At their worst the symptoms were moderate in the emergency department the symptoms are unchanged. The patient has experienced similar episodes in the past, several times. Historical: - Allergies: 04:04 No Known Allergies; vc1 - PMHx: 04:04 Schizophrenia; vc1 - PSHx: 04:04 None; vc1 - Immunization history:: Adult Immunizations up to date. - Social history:: Smoking status: Patient reports the use of cigarette tobacco products. - Infectious Disease History:: Denies. - Family history:: not pertinent. ROS: 05:16 Constitutional: Negative for fever, chills, and weight loss, Eyes: Negative for injury, alonso pain, redness, and discharge, ENT: Negative for injury, pain, and discharge, Neck: Negative for injury, pain, and swelling, Cardiovascular: Negative for chest pain, palpitations, and edema, Respiratory: Negative for shortness of breath, cough, wheezing, and pleuritic chest pain, Back: Negative for injury and pain, : Negative for injury, bleeding, discharge, and swelling, MS/Extremity: Negative for injury and deformity, Skin: Negative for injury, rash, and discoloration, Neuro: Negative for headache, weakness, numbness, tingling, and seizure, Psych: Negative for depression, anxiety, suicide ideation, homicidal ideation, and hallucinations, Allergy/Immunology: Negative for hives, rash, and allergies, Endocrine: Negative for neck swelling, polydipsia, polyuria, polyphagia, and marked weight changes, Hematologic/Lymphatic: Negative for swollen nodes, abnormal bleeding, and unusual bruising, 05:16 Abdomen/GI: Positive for abdominal pain, nausea and vomiting, Exam: 05:16 Constitutional: This is a well developed, well nourished patient who is awake, alert, alonso and in no acute distress. Head/Face: Normocephalic, atraumatic. Eyes: Pupils equal round and reactive to light, extra-ocular motions intact. Lids and lashes normal. Conjunctiva and sclera are non-icteric and not injected. Cornea within normal limits. Periorbital areas with no swelling, redness, or edema. ENT: Nares patent. No nasal discharge, no septal abnormalities noted. Tympanic membranes are normal and external auditory canals are clear. Oropharynx with no redness, swelling, or masses, exudates, or evidence of obstruction, uvula midline. Mucous membranes moist. Neck: Trachea midline, no thyromegaly or masses palpated, and no cervical lymphadenopathy. Supple, full range of motion without nuchal rigidity, or vertebral point tenderness. No Meningismus. Chest/axilla: Normal chest wall appearance and motion. Nontender with no deformity. No lesions are appreciated. Cardiovascular: Regular rate and rhythm with a normal S1 and S2. No gallops, murmurs, or rubs. Normal PMI, no JVD. No pulse deficits. Respiratory: Lungs have equal breath sounds bilaterally, clear to auscultation and percussion. No rales, rhonchi or wheezes noted. No increased work of breathing, no retractions or nasal flaring. Abdomen/GI: Soft, non-tender, with normal bowel sounds. No distension or tympany. No guarding or rebound. No evidence of tenderness throughout. Back: No spinal tenderness. No costovertebral tenderness. Full range of motion. Male : Normal genitalia with no discharge or lesions. Skin: Warm, dry with normal turgor. Normal color with no rashes, no lesions, and no evidence of cellulitis. MS/ Extremity: Pulses equal, no cyanosis. Neurovascular intact. Full, normal range of motion., bilateral aka Neuro: Awake and alert, GCS 15, oriented to person, place, time, and situation. Cranial nerves II-XII grossly intact. Motor strength 5/5 in all extremities. Sensory grossly intact. Cerebellar exam normal. Normal gait. 05:16 Psych: Behavior/mood is pleasant, Affect is flat, Oriented to person, place, time, Patient has no thoughts/intents to harm self or others. Delusions/hallucinations are not present. Vital Signs: 04:04 BP 133 / 96; Pulse 104; Resp 16; Temp 98.4; Pulse Ox 98% ; Weight 90 kg; Height 5 ft. 6 vc1 in. ; 04:30 BP 124 / 86; Pulse 98; Resp 18; Pulse Ox 100% on R/A; kb4 05:00 BP 123 / 95; Pulse 93; Resp 18; Pulse Ox 100% on R/A; kb4 05:30 BP 104 / 76; Pulse 98; Resp 18; Pulse Ox 95% on R/A; kb4 06:00 BP 95 / 77; Pulse 68; Resp 18; Pulse Ox 96% on R/A; kb4 06:30 BP 116 / 66; Pulse 100; Resp 18; Pulse Ox 100% on R/A; kb4 07:00 BP 116 / 91; Pulse 78; Resp 18; Pulse Ox 99% on R/A; kb4 08:00 BP 117 / 76; Pulse 59; Resp 15; Pulse Ox 99% on R/A; hb 04:04 Body Mass Index 32.02 (90.00 kg, 167.64 cm) vc1 MDM: 04:10 Medical Screening Exam initiated alonso 05:17 Differential diagnosis: Ingestion/exposure to 2 handfulls of tylenol. Data reviewed: [facility] vital signs, nurses notes, lab test result(s), EKG, radiologic studies, plain films. Consideration of Admission/Observation Patient was admitted/placed on observation. Escalation of care including admission/observation considered. I considered the following discharge prescriptions or medication management in the emergency department Medications were administered in the Emergency Department. See MAR. Independent interpretation of the following test(s) in the Emergency Department EKG: See my EKG interpretation above. Test considered but Not performed: Ultrasound no abd usg. Historians other than the Patient: EMS: ems well informed. Care significantly affected by the following chronic conditions: none. 05/16 04:11 Order name: Acetaminophen; Complete Time: 05:11 [facility] 05/16 04:11 Order name: Basic Metabolic Panel; Complete Time: 05:11 [facility] 05/16 04:11 Order name: CBC with Diff; Complete Time: 05:11 [facility] 05/16 04:11 Order name: ETOH Level; Complete Time: 05:11 [facility] 05/16 04:11 Order name: Hepatic Function; Complete Time: 05:11 alonso 05/16 04:11 Order name: PT-INR; Complete Time: 05:11 alonso 05/16 04:11 Order name: Ptt, Activated; Complete Time: 05:11 alonso 05/16 04:11 Order name: Salicylate; Complete Time: 05:11 alonso 05/16 04:11 Order name: Urine Drug Screen; Complete Time: 08:45 alonso 05/16 04:23 Order name: [place]; Complete Time: 05:11 al5 05/16 06:52 Order name: CBC with Automated Diff EDMS 05/16 06:52 Order name: CBC with Automated Diff EDMS 05/16 06:52 Order name: CBC with Automated Diff EDMS 05/16 06:52 Order name: CBC with Automated Diff EDMS 05/16 06:52 Order name: CBC with Automated Diff EDMS 05/16 06:52 Order name: Comprehensive Metabolic Panel EDMS 05/16 06:52 Order name: Comprehensive Metabolic Panel EDMS 05/16 06:52 Order name: Comprehensive Metabolic Panel EDMS 05/16 06:52 Order name: Comprehensive Metabolic Panel EDMS 05/16 06:52 Order name: Comprehensive Metabolic Panel EDMS 05/16 06:52 Order name: Lipid Profile EDMS 05/16 06:52 Order name: Lipid Profile EDMS 05/16 06:52 Order name: Magnesium EDMS 05/16 06:52 Order name: Magnesium EDMS 05/16 06:52 Order name: Magnesium EDMS 05/16 06:52 Order name: Magnesium EDMS 05/16 06:52 Order name: Magnesium EDMS 05/16 06:52 Order name: Phosphorus EDMS 05/16 06:52 Order name: Phosphorus EDMS 05/16 06:52 Order name: Phosphorus EDMS 05/16 06:52 Order name: Phosphorus EDMS 05/16 06:52 Order name: Phosphorus EDMS 05/16 06:52 Order name: Protime (+INR) EDMS 05/16 06:52 Order name: Protime (+INR) EDMS 05/16 06:52 Order name: Protime (+INR) EDMS 05/16 06:52 Order name: Protime (+INR) EDMS 05/16 06:52 Order name: T4 Free EDMS 05/16 06:52 Order name: T4 Free EDMS 05/16 06:52 Order name: Thyroid Stimulating Hormone EDMS 05/16 06:52 Order name: Thyroid Stimulating Hormone [facility] 05/16 04:11 Order name: EKG - Nurse/Tech; Complete Time: 04:18 [facility] 05/16 04:11 Order name: IV Saline Lock; Complete Time: 04:18 [facility] 05/16 04:11 Order name: Labs collected and sent; Complete Time: 04:18 [facility] 05/16 04:11 Order name: Suicide Screening ([place]); Complete Time: 04:21 [facility] Administered Medications: 04:36 CANCELLED (Other Intervention Used): ondansetron 4 mg IVP once; over 2 minutes vc1 05:10 Drug: metoCLOPramide IVP 10 mg IVP once; over 1 to 2 minutes Route: IVP; Site: right vc1 antecubital; 07:07 Follow up: Response: No adverse reaction kb4 05:35 Drug: NS 0.9% IV 1000 ml IV at 1 bolus Per protocol; to be given as a bolus over 60 kb4 minutes Route: IV; Rate: 1 bolus; Site: right antecubital; 05:35 Drug: Banana Bag - (Multivitamin IV 1 amp, NS 0.9% IV 1000 ml, Thiamine IV 100 mg, kb4 foLIC Acid IVPB 1 mg) IV at calculated rate once Route: IV; Rate: calculated rate; Site: right antecubital; 05:35 Drug: Ondansetron IVP 8 mg IVP once; over 2 minutes Route: IVP; Site: right antecubital;kb4 05:36 Follow up: Response: No adverse reaction kb4 05:35 Drug: Actidose PO Suspension (50 g/240 mL) 1 g/kg PO See Administration Instructions al5 Route: PO; 07:07 Follow up: Response: No adverse reaction kb4 05:55 Drug: Acetadote IV 150 mg/kg IV at per protocol once; not to exceed 16.5 grams al5 administer over 1 hour Route: IV; Rate: per protocol; Site: right antecubital; 07:08 Follow up: Response: No adverse reaction kb4 07:18 Drug: Acetadote IV 50 mg/kg IV at calculated rate once; not to exceed 5.5 grams cm10 administer over 4 hours Route: IV; Rate: calculated rate; Site: right antecubital; Disposition Summary: 05/16/25 05:22 Hospitalization Ordered Notes: Hospitalization Status: Inpatient Admission alonso Provider: Magan West cha Condition: Serious alonso Problem: new alonso Symptoms: are unchanged alonso Bed/Room Type: Standard alonso Location: Intensive Care Unit(05/16/25 08:37) bd Room Assignment: 5-(05/16/25 08:37) bd Diagnosis - Poisoning by 4-Aminophenol derivatives, intentional self-harm, initial encounter alonso - Suicide attempt alonso - Suicide attempt, initial encounter alonso - Alcohol abuse with intoxication alonso Forms: - Medication Reconciliation Form alonso - SBAR form alonso - Leadership Thank You Letter alonso Signatures: Dispatcher [employer] EDMS Alycia Hernandez Corey, MD MD cha Attema, Lee, EXPELLER OPERATOR-C EXPELLER OPERATOR-Cla1 Isaura Neil RN RN vc1 Sweetie Samuel, RN RN kb3 Aileen Darby, RN RN cm10 Liana Owens RN RN al5 Katherine Renteria RN RN kb4 Corrections: (The following items were deleted from the chart) 04:12 04:12 ACETAMINOPHEN+C.LAB.BRZ ordered. EDMS EDMS 04:12 04:12 BASIC METABOLIC PANEL+C.LAB.BRZ ordered. EDMS EDMS 04:12 04:12 CBC+H.LAB.BRZ ordered. EDMS EDMS 04:12 04:12 ETHANOL+C.LAB.BRZ ordered. EDMS EDMS 04:12 04:12 HEPATIC FUNCTION+C.LAB.BRZ ordered. EDMS EDMS 04:12 04:12 PROTIME (+INR)+COAG.LAB.BRZ ordered. EDMS EDMS 04:12 04:12 PTT, ACTIVATED+COAG.LAB.BRZ ordered. EDMS EDMS 04:12 04:12 SALICYLATE+C.LAB.BRZ ordered. EDMS EDMS 04:12 04:12 URINE DRUG SCREEN+UC.LAB.BRZ ordered. EDMS EDMS 04:12 04:12 ACETAMINOPHEN+C.LAB.BRZ ordered. EDMS EDMS 04:24 04:24 LITHIUM+C.LAB.BRZ ordered. EDMS EDMS 04:36 04:35 Ondansetron IVP 4 mg IVP once; over 2 minutes ordered. vc1 vc1 05:16 05:16 PMHx: Anxiety; alonso alonso 08:24 05:22 Intensive Care Unit alonso kb3 08:24 05:22 alonso kb3 08:37 08:24 [facility] ER HOLD kb3 bd 08:37 08:24 ERHOLD- kb3 bd
[2025-05-16] MEDS ORDERED: D5W 250 ML IV ONE (05:38)
[2025-05-16] MEDS ORDERED: Acetylcysteine 6000mg/30mL IV ONE ×2 (05:38→05:41)
[2025-05-16] MEDS: ACETYLCYSTEINE IV SCH (07:00)
[2025-05-16] MEDS: NA CHLORIDE 0.9% IV SCH (07:00)
[2025-05-16 07:10] LABS: METHAMPHETAM POSITIVE (NEGATIVE); THC Cannibis NEGATIVE (NEGATIVE)
[2025-05-16] MEDS ORDERED: LORazepam 2 MG/ML VIAL ONE (08:27)
[2025-05-16] MEDS: LORazepam 2 MG/ML VIAL IV PRN (08:39)
[2025-05-16] MEDS: THIAMINE HCL 100 MG TABLET PO SCH (09:00)
[2025-05-16] MEDS: FOLIC ACID 1 MG TABLET PO SCH (09:00)
[2025-05-16] MEDS: ENOXAPARIN 40 MG/0.4 ML SQ SCH (10:11)
[2025-05-16] MEDS: NA CHLORIDE 0.9% 1,000 ML IV SCH (10:11)
[2025-05-16] MEDS: FOLIC ACID 1 MG in NA CHLORIDE 0.9% 50 ML IV SCH (10:11)
[2025-05-16] MEDS: THIAMINE 200 MG/2 ML INJ IV SCH (10:12)
[2025-05-16] MEDS ORDERED: NA CHLORIDE 0.9% IV SCH (11:00)
[2025-05-16] MEDS ORDERED: ACETYLCYSTEINE IV SCH (11:00)
[2025-05-16] MEDS: NA CHLORIDE 0.9% IV ONE (11:41)
[2025-05-16] MEDS: ACETYLCYSTEINE IV ONE (11:41)
--- NOTE | 2025-05-16 15:20 | P.HP ---
Certification for Inpatient Patient admitted to: Inpatient With expected LOS: >2 Midnights Patient will require the following post-hospital care: None Practitioner: I am a practitioner with admitting privileges, knowledge of patient current condition, hospital course, and medical plan of care. Services: Services provided to patient in accordance with Admission requirements found in Title 42 Section 412.3 of the Code of Federal Regulations <Benedict Gómez - Last Filed: 05/16/25 15:17> Patient History Date of Service: 05/16/25 Reason for admission: Acetaminophen overdose History of Present Illness: 34-year-old male with history of schizophrenia presents to the emergency department after taking a large volume of acetaminophen and drinking 2-4 [place]. His ingestion was at around 3 AM, he could not be specific about how much exactly he took but he took around 2 handfuls or around half to three quarters of a 200 Bottle of 500 mg acetaminophen tablets. When asked why he did this initially he said because he had a bad headache, he then told another nurse that he did it for attention. Labs were obtained in the ED which showed a normal CBC INR of 0.97 AST of 23 ALT 33 T. bili 0.4D bili 0.2 acetaminophen level of 275.5 with alcohol level of 102 and positive for amphetamines on his urine drug screen. Poison control was contacted who recommended treatment with activated charcoal and NAC. Patient be admitted to the ICU for further management. - Past Medical/Surgical History Has patient received pneumonia vaccine in the past: No -: Schizophrenia Past Surgical History: Unable to obtain - Social History Smoking Status: Current every day smoker Alcohol use: Yes Place of Residence: Home <Benedict Gómez - Last Filed: 05/16/25 15:17> Date of Service: 05/16/25 <Sidney Chowdhury - Last Filed: 05/16/25 16:05> Allergies No Known Allergies Allergy (Unverified 09/16/24 11:19) Home Medications: NK [No Home Meds] 05/16/25 Review of Systems 10-point ROS is otherwise unremarkable Gastrointestinal: Nausea <Benedict Gómez - Last Filed: 05/16/25 15:17> Physical Examination - Vital Signs Temperature: 97.9 F Blood Pressure: 131/84 Pulse: 76 Respirations: 13 Pulse Ox (%): 100 - Physical Exam General: Alert, In no apparent distress, Oriented x2, Confused HEENT: Atraumatic, PERRLA, EOMI Neck: Supple, 2+ carotid pulse no bruit, No LAD Respiratory: Clear to auscultation bilaterally, Normal air movement Cardiovascular: Regular rate/rhythm, Normal S1 S2 Gastrointestinal: Normal bowel sounds, No tenderness Musculoskeletal: No tenderness Integumentary: No rashes Neurological: Normal speech, Normal affect - Studies Laboratory Data (last 24 hrs) 05/16/25 05/16/25 05/16/25 04:04 04:04 04:04 WBC 4.70 Hgb 14.4 Hct 41.5 Plt Count 224 PT 11.0 INR 0.97 APTT 29.7 Sodium 143 Potassium 3.4 L BUN 8 Creatinine 0.95 Glucose 139 H Total Bilirubin 0.4 AST 23 ALT 33 Alkaline Phosphatase 82 <Benedict Gómez - Last Filed: 05/16/25 15:17> - Studies Laboratory Data (last 24 hrs) 05/16/25 05/16/25 05/16/25 04:04 04:04 04:04 WBC 4.70 Hgb 14.4 Hct 41.5 Plt Count 224 PT 11.0 INR 0.97 APTT 29.7 Sodium 143 Potassium 3.4 L BUN 8 Creatinine 0.95 Glucose 139 H Total Bilirubin 0.4 AST 23 ALT 33 Alkaline Phosphatase 82 <Sidney Chowdhury - Last Filed: 05/16/25 16:05> Assessment and Plan - Plan Assessment: Intentional acetaminophen overdose/toxicity Alcohol abuse History of schizophrenia Plan: Intentional acetaminophen overdose/toxicity Receiving NAC protocol for acetaminophen toxicity Repeat LFTs, acetaminophen level 3 hours prior to completion of NAC If LFTs become elevated or Tylenol is still detectable continue NAC for another liter Monitor CMP daily Sitter for one-on-one care for suicide attempt Likely to need inpatient psych once medically cleared Post control also following Alcohol abuse Patient drowsy/confused this time, will need to be counseled on need for alcohol cessation prior to discharge/transfer History of schizophrenia Unclear if patient is taking medications for this at home Obtain and verify home medications when possible, resume as appropriate DVT PPX: Lovenox Code status: Full code Discharge Plan: Transfer Plan to discharge in: Greater than 2 days - Advance Directives Does patient have a Living Will: No Does patient have a Durable POA for Healthcare: No - Code Status/Comfort Care Code Status Assessed: Yes (Full code) Critical Care: Yes Time Spent Managing Pts Care (In Minutes): 76 <Benedict Gómez - Last Filed: 05/16/25 15:17> Physician Review: Patient Assessed, Agree with Above Assessment and Plan <Sidney Chowdhury - Last Filed: 05/16/25 16:05>
[2025-05-16] MEDS: ONDANSETRON 4 MG/2 ML VIAL IV PRN (21:31)
[2025-05-16] MEDS: LORazepam 2 MG/ML VIAL IV ONE (22:56)
[2025-05-17 00:42] LABS: ALT/SGPT 31 U/L (16-61); AST/SGOT 17 U/L (15-37); Albumin 2.5 g/dL (3.4-5.0); Albumin/Globulin Ratio 1.0 (1.1-1.8); Alkaline Phosphatase 59 U/L (45-117); Globulin 2.5 g/dL (2.3-3.5)
[2025-05-17 00:56] LABS: Bilirubin Indirect, Calculated 0.0 mg/dL (0.2-0.8)
[2025-05-17] MEDS ORDERED: Acetylcysteine 6000mg/30mL IV ONE (01:50)
[2025-05-17 02:31] LABS: PT Prothrombin Time 12.6 SECONDS (10-13.0); Protime INR 1.12
[2025-05-17] MEDS ORDERED: NA CHLORIDE 0.9% IV SCH (03:00)
[2025-05-17] MEDS ORDERED: ACETYLCYSTEINE IV SCH (03:00)
[2025-05-17] MEDS: ACETYLCYSTEINE IV ONE (03:07)
[2025-05-17] MEDS: NA CHLORIDE 0.9% IV ONE (03:07)
[2025-05-17 05:44] LABS: Absolute Lymphocytes (CBC) 0.9 K/uL (0.7-4.9); Hematocrit 36.4 % (39.6-49.0); Hemoglobin 12.8 g/dL (13.6-17.9); MCH 32.9 pg (27.0-35.0); MCHC 35.2 g/dL (32.0-36.0); MCV 93.4 fL (80-100); MPV 7.6 fL (7.6-11.3); Nucleated RBC Absolute Count 0.0 (0-0); Nucleated Red Blood Cells % 0.0 % (0-0); RBC Red Blood Cell Count 3.90 M/uL (4.33-5.43); White Blood Count 4.30 thou/uL (4.3-10.9)
[2025-05-17 05:59] LABS: PT Prothrombin Time 12.7 SECONDS (10-13.0); Protime INR 1.13
[2025-05-17 06:20] LABS: ALT/SGPT 27.0 U/L (16-61); AST/SGOT 14.0 U/L (15-37); Albumin 2.5 g/dL (3.4-5.0); Albumin/Globulin Ratio 1.0 (1.1-1.8); Alkaline Phosphatase 54.0 U/L (45-117); Anion Gap 9.0 mEq/L (5.0-15.0); BUN Blood Urea Nitrogen 5.0 mg/dL (7-18); Globulin 2.6 g/dL (2.3-3.5); Glucose Level 104.0 mg/dL (74-106); HDL Cholesterol 36.0 mg/dL (40-60); LDL Cholesterol, Calculated 55.0 mg/dL (<130); LDL Cholesterol,Calc NonReport 55.0; Magnesium 1.6 mg/dL (1.6-2.4); Potassium 3.0 mEq/L (3.5-5.1); Thyroid Stimulating Hormone 3.57 uIU/mL (0.358-3.740)
[2025-05-17] MEDS ORDERED: SODIUM PHOSPHATE 30 MM in NA CHLORIDE 0.9% 500 ML IV ONE (08:00)
[2025-05-17] MEDS: POTASSIUM 25 MEQ EFFERV TAB PO ONE (08:17)
[2025-05-17] MEDS: POTASS/SODIUM PHOSPHATE 1 PKT POWD.PACK PO SCH (08:18)
[2025-05-17] MEDS: MORPHINE 2 MG/ML SYR IV PRN (08:19)
[2025-05-17 11:04] LABS: PT Prothrombin Time 13.0 SECONDS (10-13.0); Protime INR 1.16
[2025-05-17 11:14] LABS: ALT/SGPT 28 U/L (16-61); AST/SGOT 12 U/L (15-37); Albumin 2.5 g/dL (3.4-5.0); Albumin/Globulin Ratio 0.9 (1.1-1.8); Alkaline Phosphatase 56 U/L (45-117); Globulin 2.7 g/dL (2.3-3.5)
[2025-05-17 11:15] LABS: Bilirubin Indirect, Calculated 0.3 mg/dL (0.2-0.8)
--- NOTE | 2025-05-17 14:56 | P.PN ---
Date of Service: 05/17/25 Subjective: Agitated periodically, asking to smoke a cigarette States he took the tylenol because of a bad headache No acute events overnight LFTs WNL ROS: 10 point ROS as noted above, otherwise negative Physical exam GEN: Alert, oriented, NAD, agitated HEENT: Normal conjunctiva, sclera anicteric CV: Regular rate and rhythm, no edema Pulm: Nonlabored respirations on room air ABD: Soft, nontender, nondistended MSK: No joint tenderness Integumentary: No rashes Neuro: Normal speech, normal affect Vitals reviewed Assessment: Intentional acetaminophen overdose/toxicity Suicidal gesture Alcohol abuse History of schizophrenia Plan: Intentional acetaminophen overdose/toxicity Suicidal gesture Receiving NAC protocol for acetaminophen toxicity Monitor CMP daily-LFTs not elevated at this time Sitter for one-on-one care for suicidal gesture Likely to need inpatient psych once medically cleared Poison control following Alcohol abuse Counseled on need for alcohol cessation prior to discharge/transfer History of schizophrenia Unclear if patient is taking medications for this at home Obtain and verify home medications when possible, resume as appropriate DVT PPX: Lovenox Code status: Full code Discharge Plan: Transfer Plan to discharge in: Greater than 2 days Time Spent Managing Pts Care (In Minutes): 35 <Benedict Gómez - Last Filed: 05/17/25 14:56> I have personally seen and evaluated the patient. I have reviewed the history, physical exam findings, and assessment provided by Benedict Gómze PROGRAM PROJECT MANAGER. I agree with the plan of care as documented <Sidney Chowdhury - Last Filed: 05/17/25 16:33>
[2025-05-17] MEDS ORDERED: ZIPRASIDONE MESYLA 20 MG/VIAL IM PRN (17:07)
[2025-05-17] MEDS ORDERED: LORazepam 2 MG/ML VIAL IM PRN (17:07)
[2025-05-17] MEDS ORDERED: WATER FOR INJ,STERILE 10 ML IM PRN (17:07)
[2025-05-17 19:38] VITALS: O2SAT 94
[2025-05-18 05:11] VITALS: BMI 31.8
[2025-05-18 05:44] VITALS: TEMP 97.8
[2025-05-18 05:52] LABS: Absolute Lymphocytes (CBC) 1.0 K/uL (0.7-4.9); Hematocrit 38.5 % (39.6-49.0); Hemoglobin 13.6 g/dL (13.6-17.9); MCH 33.0 pg (27.0-35.0); MCHC 35.2 g/dL (32.0-36.0); MCV 93.5 fL (80-100); MPV 7.7 fL (7.6-11.3); Nucleated RBC Absolute Count 0.0 (0-0); Nucleated Red Blood Cells % 0.1 % (0-0); RBC Red Blood Cell Count 4.12 M/uL (4.33-5.43); White Blood Count 5.20 thou/uL (4.3-10.9)
[2025-05-18 05:59] LABS: PT Prothrombin Time 11.7 SECONDS (10-13.0); Protime INR 1.04
[2025-05-18 06:09] LABS: ALT/SGPT 27.0 U/L (16-61); AST/SGOT 17.0 U/L (15-37); Albumin 2.8 g/dL (3.4-5.0); Albumin/Globulin Ratio 1.0 (1.1-1.8); Alkaline Phosphatase 64.0 U/L (45-117); Anion Gap 7.1 mEq/L (5.0-15.0); BUN Blood Urea Nitrogen 5.0 mg/dL (7-18); Globulin 2.8 g/dL (2.3-3.5); Glucose Level 126.0 mg/dL (74-106); Magnesium 2.0 mg/dL (1.6-2.4); Potassium 3.1 mEq/L (3.5-5.1)
[2025-05-18] MEDS ORDERED: FOLIC ACID 5 MG/ML VIAL ONE (08:01)
[2025-05-18] MEDS: POTASS/SODIUM PHOSPHATE 1 PKT POWD.PACK PO SCH (08:03)
[2025-05-18] MEDS: POTASSIUM CL SA 10 MEQ TAB PO ONE (08:03)
[2025-05-18 09:56] VITALS: BP 143/75
--- NOTE | 2025-05-18 10:18 | P.DS ---
Admission Date: 05/16/25 Discharge Date: 05/18/25 Reason for Admission: Acetaminophen overdose Brief History of Present Illness: 34-year-old male with history of schizophrenia presents to the emergency department after taking a large volume of acetaminophen and drinking 2-4 Houghton's. His ingestion was at around 3 AM, he could not be specific about how much exactly he took but he took around 2 handfuls or around half to three quarters of a 200 Bottle of 500 mg acetaminophen tablets. When asked why he did this initially he said because he had a bad headache, he then told another nurse that he did it for attention. Labs were obtained in the ED which showed a normal CBC INR of 0.97 AST of 23 ALT 33 T. bili 0.4D bili 0.2 acetaminophen level of 275.5 with alcohol level of 102 and positive for amphetamines on his urine drug screen. Poison control was contacted who recommended treatment with activated charcoal and NAC. Patient be admitted to the ICU for further management. Hospital Course: Assessment: Intentional acetaminophen overdose/toxicity Suicidal gesture Alcohol abuse History of schizophrenia Patient was admitted to the hospital after consuming around 3 quarts a bottle of Tylenol. He reports that after drinking alcohol he had a moment and took the Tylenol, he immediately regretted this decision and ran to the nearest phone to call anyone for help. He adamantly denies any suicidal ideations at this time and is requesting to be discharged in the hospital. He did have an KANDI in place at time of arrival to the hospital, this has . During his hospitalization he was treated for acetaminophen overdose with acetylcysteine, he completed the protocol as recommended by Poison Control Center and LFTs have remained within normal limits. Patient is verbalized to numerous staff including myself, hospitalist physician and ICU staff that he is not suicidal, has no plan to harm himself and will follow-up outpatient with [facility]. I personally called [facility] and schedule him an appointment for 05/30/2025 at [address] AM at [address] [place] [address] in [place], [place]. Patient is agreeable to keeping this appointment and following up with the [facility], states that he will not harm himself. We do recommend inpatient care for his condition, we were able to secure him a bed adamant to have hospital but he refuses to go at this time and he does not have an KANDI in place or mental health warrant. He will be able to leave AMA at this time. <Benedict Gómez Tiffany Nicole - Last Filed: 05/18/25 10:17> Admission Date: 05/16/25 Discharge Date: 05/18/25 <TrentonMikeduran - Last Filed: 05/18/25 15:56> Disposition: AMA-LEFT AGAINST MEDICAL ADVIC Discharge Condition: GOOD Vital Signs/Physical Exam: Temp Pulse Resp BP Pulse Ox 97.8 F 60 16 143/75 H 98 05/18/25 05:43 05/18/25 05:43 05/18/25 05:43 05/18/25 08:00 05/18/25 05:43 General: Alert, In no apparent distress, Oriented x3 HEENT: Atraumatic Neck: Supple Respiratory: Normal air movement Cardiovascular: No edema Gastrointestinal: Non-distended Neurological: Normal speech, Normal affect Laboratory Data at Discharge: WBC 5.20 thou/uL (4.3-10.9) 05/18/25 05:22 Hgb 13.6 g/dL (13.6-17.9) 05/18/25 05:22 Hct 38.5 % (39.6-49.0) L 05/18/25 05:22 Plt Count 215 thou/uL (152-406) 05/18/25 05:22 PT 11.7 SECONDS (10-13.0) 05/18/25 05:22 INR 1.04 05/18/25 05:22 APTT 29.7 SECONDS (27.2-37.4) 05/16/25 04:04 Sodium 140 mEq/L (136-145) 05/18/25 05:22 Potassium 3.1 mEq/L (3.5-5.1) L 05/18/25 05:22 BUN 5 mg/dL (7-18) L 05/18/25 05:22 Creatinine 0.68 mg/dL (0.70-1.30) L 05/18/25 05:22 Glucose 126 mg/dL (74-106) H 05/18/25 05:22 Phosphorus 2.1 mg/dL (2.5-4.9) L 05/18/25 05:22 Magnesium 2.0 mg/dL (1.6-2.4) 05/18/25 05:22 Total Bilirubin 0.5 mg/dL (0.2-1.0) 05/18/25 05:22 AST 17 U/L (15-37) 05/18/25 05:22 ALT 27 U/L (16-61) 05/18/25 05:22 Alkaline Phosphatase 64 U/L (45-117) 05/18/25 05:22 Triglycerides 151 mg/dL (<150) H 05/17/25 05:08 Cholesterol 121 mg/dL (<200) 05/17/25 05:08 HDL Cholesterol 36 mg/dL (40-60) L 05/17/25 05:08 Cholesterol/HDL Ratio 3.36 05/17/25 05:08 <Benedict Gómez - Last Filed: 05/18/25 10:17> Vital Signs/Physical Exam: Temp Pulse Resp BP Pulse Ox 97.8 F 60 16 143/75 H 98 05/18/25 05:43 05/18/25 05:43 05/18/25 05:43 05/18/25 08:00 05/18/25 05:43 Laboratory Data at Discharge: WBC 5.20 thou/uL (4.3-10.9) 05/18/25 05:22 Hgb 13.6 g/dL (13.6-17.9) 05/18/25 05:22 Hct 38.5 % (39.6-49.0) L 05/18/25 05:22 Plt Count 215 thou/uL (152-406) 05/18/25 05:22 PT 11.7 SECONDS (10-13.0) 05/18/25 05:22 INR 1.04 05/18/25 05:22 APTT 29.7 SECONDS (27.2-37.4) 05/16/25 04:04 Sodium 140 mEq/L (136-145) 05/18/25 05:22 Potassium 3.1 mEq/L (3.5-5.1) L 05/18/25 05:22 BUN 5 mg/dL (7-18) L 05/18/25 05:22 Creatinine 0.68 mg/dL (0.70-1.30) L 05/18/25 05:22 Glucose 126 mg/dL (74-106) H 05/18/25 05:22 Phosphorus 2.1 mg/dL (2.5-4.9) L 05/18/25 05:22 Magnesium 2.0 mg/dL (1.6-2.4) 05/18/25 05:22 Total Bilirubin 0.5 mg/dL (0.2-1.0) 05/18/25 05:22 AST 17 U/L (15-37) 05/18/25 05:22 ALT 27 U/L (16-61) 05/18/25 05:22 Alkaline Phosphatase 64 U/L (45-117) 05/18/25 05:22 Triglycerides 151 mg/dL (<150) H 05/17/25 05:08 Cholesterol 121 mg/dL (<200) 05/17/25 05:08 HDL Cholesterol 36 mg/dL (40-60) L 05/17/25 05:08 Cholesterol/HDL Ratio 3.36 05/17/25 05:08 <Sidney Chowdhury - Last Filed: 05/18/25 15:56> Diet: Regular Activity: Ad miguelito Time spent managing pt's care (in minutes): 45 <Benedict Gómez - Last Filed: 05/18/25 10:17> Physician Review: Patient Assessed, Agree with Above Assessment and Plan <Sidney Chowdhury - Last Filed: 05/18/25 15:56> Home Medications: NK [No Home Meds] 05/16/25 Physician Discharge Instructions: Patient was admitted to the hospital after consuming around 3 quarts a bottle of Tylenol. He reports that after drinking alcohol he had a moment and took the Tylenol, he immediately regretted this decision and ran to the nearest phone to call anyone for help. He adamantly denies any suicidal ideations at this time and is requesting to be discharged in the hospital. He did have an KANDI in place at time of arrival to the hospital, this has . During his hospitalization he was treated for acetaminophen overdose with acetylcysteine, he completed the protocol as recommended by Poison Control Center and LFTs have remained within normal limits. Patient is verbalized to numerous staff including myself, hospitalist physician and ICU staff that he is not suicidal, has no plan to harm himself and will follow-up outpatient with [facility]. I personally called [facility] and schedule him an appointment for 05/30/2025 at [address] [place] [address]. in [place], [place]. Patient is agreeable to keeping this appointment and following up with the [facility], states that he will not harm himself. We do recommend inpatient care for his condition, we were able to secure him a bed adamant to have hospital but he refuses to go at this time and he does not have an KANDI in place or mental health warrant. He will be able to leave AMA at this time. Followup: NONE,NONE [Primary Care Provider] - 05/30/25 9:00 am
== END 2025-05-18 09:30 | disposition left against medical advice (07) | DRG 918 ==
LOC: ER 04:04 → ERHOLD 06:43 → 3RD-ICU 08:53
PROVIDERS: ADMIT Family Medicine; ATTEND Family Medicine
DX: T39.1X2A Poisoning by 4-Aminophenol derivatives, intentional self-harm, initial encounter (principal); F20.9 Schizophrenia, unspecified; F17.210 Nicotine dependence, cigarettes, uncomplicated; F10.129 Alcohol abuse with intoxication, unspecified; T14.91XA Suicide attempt, initial encounter; Z53.29 Procedure and treatment not carried out because of patient's decision for other reasons
CPT/HCPCS: 36415; 80048; 80053; 80061; 80076; 80143; 80178; 80179; 80307; 82077; 83735; 84100; 84439; 84443; 85025; 85610; 85730; 93005; 96374; 96375; 99285; J0132; J1650; J2270; J2405; J2765; J3411; J7030; J7040; J7060

== ENCOUNTER 2025-06-27 00:31 | Emergency (ER) | payer OTHER ==
[2025-06-27 02:37] LABS: Absolute Lymphocytes (CBC) 1.3 K/uL (0.7-4.9); Hematocrit 47.5 % (39.6-49.0); Hemoglobin 16.3 g/dL (13.6-17.9); MCH 33.3 pg (27.0-35.0); MCHC 34.4 g/dL (32.0-36.0); MCV 96.7 fL (80-100); MPV 8.3 fL (7.6-11.3); Nucleated RBC Absolute Count 0.0 (0-0); Nucleated Red Blood Cells % 0.0 % (0-0); RBC Red Blood Cell Count 4.91 M/uL (4.33-5.43); White Blood Count 6.30 thou/uL (4.3-10.9)
[2025-06-27 02:50] LABS: PT Prothrombin Time 11.3 SECONDS (10-13.0); PTT, Activated Partial Thromb 33.0 SECONDS (27.2-37.4); Protime INR 1.0
[2025-06-27 03:01] LABS: ALT/SGPT 49 U/L (16-61); AST/SGOT 29 U/L (15-37); Albumin 3.7 g/dL (3.4-5.0); Albumin/Globulin Ratio 1.0 (1.1-1.8); Alkaline Phosphatase 97 U/L (45-117); Anion Gap 8.4 mEq/L (5.0-15.0); BUN Blood Urea Nitrogen 10 mg/dL (7-18); Bilirubin Indirect, Calculated 0.6 mg/dL (0.2-0.8); Globulin 3.6 g/dL (2.3-3.5); Glucose Level 100 mg/dL (74-106); Potassium 3.4 mEq/L (3.5-5.1)
--- NOTE | 2025-06-27 03:07 | EDPHYS ---
Physician Documentation [facility] Name: Russell Johansen Age: 34 yrs Sex: Male : 1990 Arrival Date: 06/27/2025 Time: 00:31 Bed 19 Private MD: ED Physician Robin Cruz HPI: 06/27 01:10 This 34 yrs old Male presents to ER via Unassigned with complaints of Suicidal cp Ideation. 01:10 The patient presents to the emergency department with suicide ideation, and the patient cp has a plan, to overdose with medications. Onset: The symptoms/episode began/occurred yesterday. Past psychiatric history: Prior diagnosis: schizophrenia, Psychiatric medications include: none. Associated signs and symptoms: Pertinent positives; substance abuse, Pertinent negatives: abdominal pain, chest pain, fever, hallucinations. Historical: - Allergies: :23 No Known Allergies; tb4 - PMHx: :23 Schizophrenia; tb4 - Immunization history:: Adult Immunizations unknown. - Infectious Disease History:: Denies. - Social history:: Smoking status: Patient reports the use of cigarette tobacco products, smokes one pack cigarettes per day. Patient uses alcohol, on a daily basis. claims drinking about a 6 pack/day. ROS: 01:15 Constitutional: Negative for body aches, chills, fever, poor PO intake, cp 01:15 Eyes: Negative for injury, pain, redness, and discharge, cp 01:15 Cardiovascular: Negative for chest pain, 01:15 Respiratory: Negative for cough, shortness of breath, wheezing, 01:15 Abdomen/GI: Negative for abdominal pain, vomiting, diarrhea, constipation, 01:15 Neuro: Negative for altered mental status, 01:15 Psych: Positive for suicidal ideation, 01:15 All other systems are negative, Exam: 02:25 ECG was reviewed by the Attending Physician. cp 06:08 Constitutional: This is a well developed, well nourished patient who is awake, alert, sp4 and in no acute distress. Head/Face: Normocephalic, atraumatic. Eyes: Pupils equal round and reactive to light, extra-ocular motions intact. Lids and lashes normal. Conjunctiva and sclera are not injected. Cornea within normal limits. Periorbital areas with no swelling, redness, or edema. ENT: Nares patent. No nasal discharge, no septal abnormalities noted. Tympanic membranes are normal and external auditory canals are clear. Oropharynx with no redness, swelling, or masses, exudates, or evidence of obstruction, uvula midline. Mucous membranes moist. Neck: Trachea midline, no thyromegaly or masses palpated, and no cervical lymphadenopathy. Supple, full range of motion without nuchal rigidity, or vertebral point tenderness. Chest/axilla: Normal chest wall appearance and motion. Nontender with no deformity. No lesions are appreciated. Cardiovascular: Regular rate and rhythm with a normal S1 and S2. No gallops, murmurs, or rubs. No pulse deficits. Respiratory: Lungs have equal breath sounds bilaterally, clear to auscultation and percussion. No rales, rhonchi or wheezes noted. No increased work of breathing, no retractions or nasal flaring. Abdomen/GI: Soft, with normal bowel sounds. No distension or tympany. No guarding or rebound. No evidence of tenderness throughout. Back: No spinal tenderness. No costovertebral tenderness. Skin: Warm, dry with normal turgor. Normal color with no rashes, no lesions, and no evidence of cellulitis. MS/ Extremity: Pulses equal, no cyanosis. Neurovascular intact. Full, normal range of motion. Neuro: Awake and alert, GCS 15, oriented to person, place, time, and situation. Cranial nerves II-XII grossly intact. Motor strength 5/5 in all extremities. Sensory grossly intact. Psych: Awake, alert, with orientation to person, place and time. Behavior, mood, and affect are within normal limits Vital Signs: 01:12 BP 119 / 72; Pulse 66; Resp 19; Temp 98.4(O); Pulse Ox 99% on R/A; Weight 92.99 kg; tb4 01:24 Height 5 ft. 6 in. ; Pain 0/10; tb4 02:15 BP 105 / 64; Pulse 67; Resp 20; Pulse Ox 100% on R/A; tb4 03:10 BP 121 / 71; Pulse 56; Resp 19; Pulse Ox 99% on R/A; tb4 04:00 BP 111 / 68; Pulse 61; Resp 17; Pulse Ox 99% on R/A; tb4 05:01 BP 108 / 72; Pulse 69; Resp 19; Pulse Ox 100% on R/A; tb4 06:08 BP 119 / 78; Pulse 69; Resp 20; Pulse Ox 98% on R/A; Pain 0/10; tb4 11:37 BP 121 / 67; Pulse 65; Resp 16; Pulse Ox 99% ; bp 01:24 Pain Scale: Adult tb4 06:08 Pain Scale: Adult tb4 Emerson Coma Score: 06:08 Eye Response: spontaneous(4). Motor Response: obeys commands(6). Verbal Response: sp4 oriented(5). Total: 15. MDM: 00:56 Medical Screening Exam initiated cp 06:07 Differential diagnosis: drug withdrawal. acute psychotic break, depression, psychosis sp4 secondary to non-compliance. Data reviewed: vital signs, nurses notes, lab test result(s), EKG. 06:07 Consideration of Admission/Observation Escalation of care including sp4 admission/observation considered. ED course: Stable for transfer to psychiatric hospital.. 06/27 01:08 Order name: Acetaminophen; Complete Time: 03:05 cp 06/27 01:08 Order name: Basic Metabolic Panel; Complete Time: 03:05 cp 06/27 03:05 Interpretation: Normal except: K 3.4. cp 06/27 01:08 Order name: CBC with Diff; Complete Time: 03:05 cp 06/27 01:08 Order name: ETOH Level; Complete Time: 03:05 cp 06/27 01:08 Order name: Hepatic Function; Complete Time: 03:05 cp 06/27 01:08 Order name: PT-INR; Complete Time: 03:05 cp 06/27 01:08 Order name: Ptt, Activated; Complete Time: 03:05 cp 06/27 01:08 Order name: Salicylate; Complete Time: 03:05 cp 06/27 01:08 Order name: Urine Drug Screen; Complete Time: 04:26 cp 06/27 01:08 Order name: EKG - Nurse/Tech; Complete Time: 02:50 cp 06/27 01:08 Order name: IV Saline Lock; Complete Time: 02:00 cp 06/27 01:08 Order name: Labs collected and sent; Complete Time: 02:00 cp 06/27 01:08 Order name: Suicide Precautions; Complete Time: 02:50 cp 06/27 01:08 Order name: Suicide Screening ([place]); Complete Time: 02:50 cp EC:25 Rate is 68 beats/min. Rhythm is regular. DE interval is normal. QRS interval is cp prolonged at 102 msec. QT interval is normal. T waves are Inverted in lead aVR. Interpreted by me. Reviewed by me. Administered Medications: 03:51 Drug: Potassium PO Effervescent Tablet 50 mEq PO once; dissolve in 4 ounces of water or tb4 juice Route: PO; 04:50 Follow up: Response: No adverse reaction tb4 06:09 Not Given (Patient Refused): lorazepam1 mg PO once tb4 Disposition: 06:07 Co-signature as Attending Physician, Robin Cruz MD I agree with the assessment sp4 and plan of care. I reviewed the patient's care provided by Advanced Practice Provider \T\ agree w/ the diagnosis \T\ care plan. I personally saw the pt \T\ performed a substantive portion of the visit, incldng all aspects of the (History/Exam/Medical Decision Making). Disposition Summary: 06/27/25 03:06 Transfer Ordered Notes: Transfer Location: [facility] cp Reason: Higher level of care cp Condition: Stable cp Problem: new cp Symptoms: have improved cp Accepting Physician: Doctor(06/27/25 11:41) bd Diagnosis - Suicidal ideations cp - Adverse effect of amphetamines cp Forms: - Medication Reconciliation Form cp - SBAR form cp Signatures: Dispatcher [employer] EDMS Alycia Hernandez bd Moe Hicks, PA-C PA-C cp Robin Cruz MD MD sp4 Soco Gonsalves, RN RN tb4 Corrections: (The following items were deleted from the chart) 01: 01:09 ACETAMINOPHEN+C.LAB.BRZ ordered. EDMS EDMS 01:09 01:09 BASIC METABOLIC PANEL+C.LAB.BRZ ordered. EDMS EDMS 01:09 01:09 CBC+H.LAB.BRZ ordered. EDMS EDMS 01: 01:09 ETHANOL+C.LAB.BRZ ordered. EDMS EDMS 01:09 01:09 HEPATIC FUNCTION+C.LAB.BRZ ordered. EDMS EDMS 01: 01:09 PROTIME (+INR)+COAG.LAB.BRZ ordered. EDMS EDMS 01: 01:09 PTT, ACTIVATED+COAG.LAB.BRZ ordered. EDMS EDMS 01:09 01:09 SALICYLATE+C.LAB.BRZ ordered. EDMS EDMS 01:09 01:09 URINE DRUG SCREEN+UC.LAB.BRZ ordered. EDMS EDMS 04:28 03:06 Doctor cp cp 11:41 04:28 Doctor cp bd
--- NOTE | 2025-06-27 03:07 | ER ---
Nurse's Notes [facility] Name: Russell Johansen Age: 34 yrs Sex: Male : 1990 Arrival Date: 06/27/2025 Time: 00:31 Bed 19 Private MD: Diagnosis: Suicidal ideations;Adverse effect of amphetamines Presentation: 06/27 01:09 Chief complaint: Patient states: He is feeling suicidal without a plan for a few days. tb4 He also cannot remember the last time he took his psychic meds. Coronavirus screen: At this time, the client does not indicate any symptoms associated with coronavirus-19. Ebola Screen: No symptoms or risks identified at this time. Initial Sepsis Screen: Does the patient meet any 2 criteria? No. Patient's initial sepsis screen is negative. Does the patient have a suspected source of infection? No. Patient's initial sepsis screen is negative. Risk Assessment: Do you want to hurt yourself or someone else? Patient reports desire/thoughts of hurting themselves or someone else. Provider notified. Onset of symptoms is unknown. 01:09 Method Of Arrival: Ambulatory tb4 01:09 Acuity: CATRACHITA 3 tb4 Triage Assessment: 02:52 General: Appears in no apparent distress. comfortable, Behavior is calm, cooperative. tb4 Pain: Denies pain. Neuro: No deficits noted. Parker Agitation-Sedation Scale (RASS): Level of Consciousness is awake, alert, obeys commands, Oriented to person, place, time, situation, Contact Lens Flashing Puncher are equal bilaterally Moves all extremities. Full function Gait is steady, Speech is normal, Facial symmetry appears normal. Cardiovascular: Patient's skin is warm and dry. Respiratory: No deficits noted. Reports Airway is patent Respiratory effort is even, unlabored, Respiratory pattern is regular, symmetrical. GI: No deficits noted. No signs and/or symptoms were reported involving the gastrointestinal system. : No deficits noted. No signs and/or symptoms were reported regarding the genitourinary system. Derm: No deficits noted. No signs and/or symptoms reported regarding the dermatologic system. Skin is intact, is healthy with good turgor, Skin is dry, Skin is normal, Skin temperature is warm. Musculoskeletal: No deficits noted. No signs and/or symptoms reported regarding the musculoskeletal system. Circulation, motion, and sensation intact. Range of motion: intact in all extremities. Historical: - Allergies: 01:23 No Known Allergies; tb4 - PMHx: 01:23 Schizophrenia; tb4 - Immunization history:: Adult Immunizations unknown. - Infectious Disease History:: Denies. - Social history:: Smoking status: Patient reports the use of cigarette tobacco products, smokes one pack cigarettes per day. Patient uses alcohol, on a daily basis. claims drinking about a 6 pack/day. Screenin:[facility] ED Fall Risk Assessment (Adult) History of falling in the last 3 months, tb4 including since admission No falls in past 3 months (0 pts) Confusion or Disorientation No (0 pts) Intoxicated or Sedated No (0 pts) Impaired Gait No (0 pts) Mobility Assist Device Used No (0 pt) Altered Elimination No (0 pt) Score/Fall Risk Level 0 - 2 = Low Risk Oriented to surroundings, Maintained a safe environment. Abuse screen: Denies threats or abuse. Denies injuries from another. Nutritional screening: Patient states he has not eaten in days . Tuberculosis screening: No symptoms or risk factors identified. Assessment: 03:54 General: Appears in no apparent distress. comfortable, Behavior is calm, cooperative. tb4 Pain: Denies pain. Neuro: Level of Consciousness is awake, alert, obeys commands, Oriented to person, place, time, situation, Gait is steady, Speech is normal, Facial symmetry appears normal. Cardiovascular: Patient's skin is warm and dry. Respiratory: Airway is patent Respiratory effort is even, unlabored, Respiratory pattern is regular, symmetrical. GI: No deficits noted. No signs and/or symptoms were reported involving the gastrointestinal system. : No deficits noted. No signs and/or symptoms were reported regarding the genitourinary system. EENT: No deficits noted. No signs and/or symptoms were reported regarding the EENT system. Derm: No deficits noted. No signs and/or symptoms reported regarding the dermatologic system. Skin is intact, is healthy with good turgor, Skin is dry, Skin is normal, Skin temperature is warm. Musculoskeletal: Circulation, motion, and sensation intact. Range of motion: intact in all extremities. 07:00 Reassessment: RECD REPORT FROM ISIAH HARLEY. 34YO HM P/W PSYCH D/O, NON-COMPLIANT WITH OUT bp PATIENT THERAPY. 10:51 Reassessment: REPORT TO AJAY MEDEIROS RN. bp 11:37 Reassessment: EMS AT B/S FOR TRANSPORT. bp Psych: 02:02 [place] Suicide Severity Screening: In the past month, have you wished you were tb4 or wished you could go to sleep and not wake up? Patient responds "yes." "In the past month, have you actually had any thoughts of killing yourself?" Patient responds "yes." "In your lifetime, have you ever done anything, started to do anything, or prepared to do anything to end your life?" Patient responds "no.". Subjective: Patient's mood is sad, Delusions are denied, Hallucinations are denied Having thoughts of suicide. Denies suicidal plan. Objective: Patient is cooperative, Speech is normal, Affect is flat. Interventions: Removed personal items and placed in bag. Patient placed in hospital gown. Searched person for dangerous items. Belonging list filled out. Patient reassessed during use of restraints. Patient is physically safe. Patient's cardiac status is stable. Patient's respirations are even and unlabored. Patient has good circulation in all extremities as indicated by capillary refill < 3 seconds. Patient's ROM assessed and is intact. Patient nutrition and hydration needs will continue to be monitored and addressed. Patient hygiene and elimination needs met. Patient assessed for signs of distress. Patient remains reasonably comfortable at this time. Assisted patient in de-escalation of behavior by removing stimuli causing behavior where possible. Safety Checks: Personal items have been removed. Door is open. No visitors are present at this time. Patient uses 12 pack of beer, daily. Last use was 3 hours ago. Patient does not have a history of DTs. Patient uses tobacco 1 pack Frequency daily. Consultation: Psych MD informed of patient's status. Commitment: Patient will be an involuntary commitment. Vital Signs: 01:12 BP 119 / 72; Pulse 66; Resp 19; Temp 98.4(O); Pulse Ox 99% on R/A; Weight 92.99 kg; tb4 01:24 Height 5 ft. 6 in. ; Pain 0/10; tb4 02:15 BP 105 / 64; Pulse 67; Resp 20; Pulse Ox 100% on R/A; tb4 03:10 BP 121 / 71; Pulse 56; Resp 19; Pulse Ox 99% on R/A; tb4 04:00 BP 111 / 68; Pulse 61; Resp 17; Pulse Ox 99% on R/A; tb4 05:01 BP 108 / 72; Pulse 69; Resp 19; Pulse Ox 100% on R/A; tb4 06:08 BP 119 / 78; Pulse 69; Resp 20; Pulse Ox 98% on R/A; Pain 0/10; tb4 11:37 BP 121 / 67; Pulse 65; Resp 16; Pulse Ox 99% ; bp 01:24 Pain Scale: Adult tb4 06:08 Pain Scale: Adult tb4 Emerson Coma Score: 06:08 Eye Response: spontaneous(4). Motor Response: obeys commands(6). Verbal Response: sp4 oriented(5). Total: 15. ED Course: 00:42 Patient arrived in ED. gm2 00:55 Moe Hicks PA-C is PHCP. cp 00:56 Robin Cruz MD is Attending Physician. cp 01:06 No provider procedures requiring assistance completed. Inserted saline lock: 20 gauge tb4 in left antecubital area, using aseptic technique. Blood collected. Flushed with 10 mL NS. 01:23 Arm band placed on right wrist. tb4 01:24 Patient has correct armband on for positive identification. Bed in low position. Call tb4 light in reach. Sitter at bedside. Warm blanket given. 02:52 EKG completed in triage. Results shown to MD. tb4 02:58 Triage completed. tb4 03:53 Urine Drug Screen Sent. vk 06:30 documents faxed to [facility]. vk 07:13 Art Cowan, RN is Primary Nurse. ar8 07:25 re faxed chart to [facility]. bd 08:[address] [facility]. bd 09:01 [facility] bd 10:25 faxed chart to [facility]. bd 10:43 faxed chart to [facility]. bd 10:56 pt accepted in transfer to [facility] [place] Godfrey, admin approval given by Loli Marshall. 11:38 IV discontinued, intact, bleeding controlled, No redness/swelling at site. Pressure bp dressing applied. Administered Medications: 03:51 Drug: Potassium PO Effervescent Tablet 50 mEq PO once; dissolve in 4 ounces of water or tb4 juice Route: PO; 04:50 Follow up: Response: No adverse reaction tb4 06:09 Not Given (Patient Refused): lorazepam1 mg PO once tb4 Medication: 01:24 VIS not applicable for this client. tb4 Outcome: 03:06 ER care complete, transfer ordered by cp 11:38 Transferred by ground EMS Note: [facility] bp 11:38 Condition: stable 11:38 Instructed on the need for transfer, 11:41 Patient left the ED. bd Signatures: Alycia Hernandez Corey, PA-C PA-C Anuj Michael, RN RN bp Bella Anderson gm2 Karena Orr Terri RN RN tb4 Art Cowan RN RN ar8
[2025-06-27] MEDS ORDERED: POTASSIUM 25 MEQ EFFERV TAB ONE (03:46)
[2025-06-27 04:10] LABS: METHAMPHETAM POSITIVE (NEGATIVE); THC Cannibis NEGATIVE (NEGATIVE)
[2025-06-27] MEDS ORDERED: LORAZEPAM 1 MG TABLET ONE (11:40)
[2025-06-27 11:55] VITALS: TEMP 98.4
[2025-06-27 12:04] VITALS: BP 121/67; O2SAT 99
== END 2025-06-27 11:41 ==
LOC: ER 00:31
DX: R45.851 Suicidal ideations (principal); F15.10 Other stimulant abuse, uncomplicated
CPT/HCPCS: 36415; 80048; 80076; 80143; 80179; 80307; 82077; 85025; 85610; 85730; 93005; 99285